=== PATIENT | female | born 1955 | race Hispanic/Latino ===

== ENCOUNTER 2017-06-10 19:18 | Inpatient (IN) | payer OTHER ==
[2017-06-10 20:36] LABS: Basophils % (Auto) 0.2 % (0.0-1.8); Hematocrit 42.2 % (30.3-42.9); Hemoglobin 13.7 gm/dl (10.1-14.3); Mean Corpuscular HGB Conc 33 % (30-34); Mean Corpuscular Hemoglobin 28 pg (28-32); Mean Corpuscular Volume 87 fl (79-97); Platelet Count 149 K/mm3 (140-440); Red Blood Count 4.85 M/mm3 (3.65-5.03); Red Cell Distribution Width 14.5 % (13.2-15.2); White Blood Count 13.4 K/mm3 (4.5-11.0)
[2017-06-10 20:52] LABS: INR 1.13 (0.87-1.13)
[2017-06-10 20:53] LABS: Partial Thromboplastin Time 34.3 Sec. (24.2-36.6)
[2017-06-10] MEDS ORDERED: LEVAQUIN 750MG/150ML 750 MG/150 ML BAG IV ONE (20:54)
[2017-06-10] MEDS ORDERED: NACL 0.9% 1000 ML IV ONE (20:54)
[2017-06-10 20:55] LABS: Anion Gap 22 mmol/L; BUN/Creatinine Ratio 23.75; Blood Urea Nitrogen 19 mg/dL (7-17); Calcium 9.1 mg/dL (8.4-10.2); Carbon Dioxide 22 mmol/L (22-30); Chloride 97.7 mmol/L (98-107); Glucose 145 mg/dL (65-100); Potassium 4.3 mmol/L (3.6-5.0); Sodium 137 mmol/L (137-145)
--- NOTE | 2017-06-10 20:57 | Emergency Department Report ---
ED General Adult HPI - General Chief complaint: Neuro Symptoms/Deficit Stated complaint: POSS STROKE Time Seen by Provider: 06/10/17 20:38 Source: patient, family, EMS (ems notes not available at time of chart dictation), RN notes reviewed Mode of arrival: Stretcher Limitations: Physical Limitation - History of Present Illness Initial comments: This is a 62-year-old female. She is previously unknown to me. She recently moved here from [place]. Has a history of stroke with residual left-sided weakness, hemiparesis, contractures, and is bedbound. History obtained by speaking to the patient and to her daughter; Ms. Kathy Márquez ([phone]). As per the patients family, patient has early dementia. She is brought to the hospital by EMS for right upper extremity weakness and trembling. Uncertain what time the symptoms started. Last known well time was earlier on this afternoon, but daughter is not certain. She describes the patient having trembling in her right upper extremity, and having difficulty bringing a plastic cup up to the mouth. The patient herself denies headache and neck pain, she complains of cough, congestion, nausea and vomiting. Unable to describe exacerbating or relieving factors. Positive subjective fever. No irritative or obstructive urinary symptoms, no abdominal pain at this time. -: Gradual, hour(s) Location: right, upper extremity Severity scale (0 -10): 6 Consistency: now resolved Associated Symptoms: confusion, chest pain, fever/chills, malaise, nausea/ vomiting, weakness - Related Data Home Medications Medication Instructions Recorded Confirmed Last Taken AtorvaSTATin [Lipitor] 80 mg PO QHS 06/10/17 06/10/17 06/10/17 Baclofen 20 mg PO Q8H 06/10/17 06/10/17 06/10/17 Gabapentin [Neurontin] 800 mg PO BID 06/10/17 06/10/17 06/10/17 Pregabalin [Lyrica] 150 mg PO BID 06/10/17 06/10/17 06/10/17 Trazodone HCl [Oleptro ER] 150 mg PO QHS 06/10/17 06/10/17 06/09/17 Allergies Allergy/AdvReac Type Severity Reaction Status Date / Time ampicillin Allergy Swelling Verified 06/10/17 19:51 Penicillins Allergy Swelling Verified 06/10/17 19:51 Sulfa (Sulfonamide Allergy Swelling Verified 06/10/17 19:51 Antibiotics) ED Review of Systems ROS: Stated complaint: POSS STROKE Other details as noted in HPI Comment: Unobtainable due to pts medical conditions Constitutional: fever, malaise Respiratory: denies: cough Gastrointestinal: nausea, vomiting Neurological: weakness, confusion ED Past Medical Hx - Past Medical History Previous Medical History?: Yes Hx CVA: Yes (2014 LEFT SIDED PARALYSIS) Hx Dementia: Yes (ALZHEIMERS) - Surgical History Past Surgical History?: No - Social History Smoking Status: Never Smoker Substance Use Type: Prescribed - Medications Home Medications: Home Medications Medication Instructions Recorded Confirmed Last Taken Type AtorvaSTATin [Lipitor] 80 mg PO QHS 06/10/17 06/10/17 06/10/17 History Baclofen 20 mg PO Q8H 06/10/17 06/10/17 06/10/17 History Gabapentin [Neurontin] 800 mg PO BID 06/10/17 06/10/17 06/10/17 History Pregabalin [Lyrica] 150 mg PO BID 06/10/17 06/10/17 06/10/17 History Trazodone HCl [Oleptro ER] 150 mg PO QHS 06/10/17 06/10/17 06/09/17 History ED Physical Exam - General Limitations: Physical Limitation General appearance: alert, in no apparent distress - Head Head exam: Present: atraumatic, normocephalic - Eye Eye exam: Present: normal appearance, other (the patient is awake, follows some commands, but she does not move her eyes to the right or left.) - ENT ENT exam: Present: mucous membranes dry - Neck Neck exam: Present: normal inspection, full ROM. Absent: tenderness, meningismus - Respiratory Respiratory exam: Present: rhonchi, decreased breath sounds. Absent: respiratory distress - Cardiovascular Cardiovascular Exam: Present: normal rhythm, tachycardia, normal heart sounds. Absent: systolic murmur, diastolic murmur, rubs, gallop - GI/Abdominal GI/Abdominal exam: Present: soft, normal bowel sounds. Absent: distended, tenderness, guarding, rebound, rigid, pulsatile mass - Rectal Rectal exam: Present: normal inspection - Extremities Exam Extremities exam: Present: normal inspection, normal capillary refill. Absent: pedal edema, joint swelling, calf tenderness - Back Exam Back exam: Present: normal inspection, full ROM. Absent: tenderness, CVA tenderness (R), CVA tenderness (L), muscle spasm, paraspinal tenderness, vertebral tenderness - Neurological Exam Neurological exam: Present: alert (patient is alert to name, location, and can name her daughter.), motor sensory deficit (chronic weakness left upper extremity, left lower extremity) - Psychiatric Psychiatric exam: Present: normal affect, normal mood - Skin Skin exam: Present: warm, dry, intact, normal color. Absent: rash ED Course Vital Signs 06/10/17 06/10/17 06/10/17 19:35 19:45 19:51 Temperature 98.5 F Pulse Rate 114 H 115 H Respiratory 23 18 Rate Blood Pressure 124/72 138/72 124/72 Blood Pressure 124/72 [Right] O2 Sat by Pulse 96 96 Oximetry 06/10/17 06/10/17 06/10/17 20:00 20:03 20:04 Temperature Pulse Rate 105 H 115 H Respiratory 20 18 Rate Blood Pressure 149/65 Blood Pressure [Right] O2 Sat by Pulse 96 96 Oximetry 06/10/17 06/10/17 06/10/17 20:15 20:42 20:45 Temperature Pulse Rate 105 H 109 H 116 H Respiratory 16 19 15 Rate Blood Pressure 150/66 124/72 145/76 Blood Pressure [Right] O2 Sat by Pulse 96 97 97 Oximetry 06/10/17 06/10/17 06/10/17 20:54 21:00 21:16 Temperature 102.6 F H Pulse Rate 122 H 112 H Respiratory 15 21 Rate Blood Pressure 145/76 145/76 Blood Pressure [Right] O2 Sat by Pulse 96 97 Oximetry 06/10/17 06/10/17 06/10/17 21:30 22:02 22:16 Temperature Pulse Rate 110 H 122 H 137 H Respiratory 18 18 Rate Blood Pressure 145/76 145/76 145/76 Blood Pressure [Right] O2 Sat by Pulse 98 98 97 Oximetry 06/10/17 06/10/17 06/10/17 22:30 22:45 23:00 Temperature Pulse Rate 128 H 126 H 125 H Respiratory 23 21 18 Rate Blood Pressure 144/63 133/50 133/50 Blood Pressure [Right] O2 Sat by Pulse 98 98 96 Oximetry 06/10/17 06/10/17 06/10/17 23:15 23:30 23:36 Temperature 100.2 F H Pulse Rate 126 H 149 H 152 H Respiratory 23 27 H 18 Rate Blood Pressure 132/55 132/55 Blood Pressure 124/87 [Right] O2 Sat by Pulse 95 97 98 Oximetry 06/10/17 06/10/17 06/11/17 23:46 23:53 00:00 Temperature 100.6 F H Pulse Rate 161 H 156 H Respiratory 30 H 29 H Rate Blood Pressure 154/111 154/111 Blood Pressure [Right] O2 Sat by Pulse 99 96 Oximetry - Reevaluation(s) Reevaluation #1: 06/10/17 21:55 Differential diagnosis: Urinary tract infection, pneumonia, sepsis, transient ischemic attack, dehydration, renal insufficiency Assessment and plan: 62-year-old female with history of dementia, stroke, left- sided hemiparesis, which resolved right upper extremity weakness. She has 5 out of 5 strength in the right upper and right lower extremity, with sensation intact to light touch in the right upper and right lower extremity. The patient is not delirious at this point time, and she meets systemic inflammatory response syndrome criteria through tachycardia, fever, leukocytosis. Noncontrast CT scan of the brain is negative, x-ray of the chest is negative, urinalysis is pending, given reported history of nausea and vomiting, CT scan of the abdomen and pelvis is pending. Family endorses anaphylaxis with penicillins, therefore the patient will be covered empirically with Levaquin. Reevaluation #2: 06/10/17 23:02 CT scan demonstrates obstructing stone. Patient remains hemodynamically stable , a call is placed out to the urologist. Reevaluation #3: 06/11/17 01:08 Case was discussed with urology, Dr. Lezama. He is coming in to perform emergent intervention for obstructing kidney stone, likely causing septic hydronephrosis. Case is presented to the Hospital physician, Dr. Kelly, she accepts the patient to her service. ED Medical Decision Making - Lab Data Result diagrams: 06/10/17 20:17 06/10/17 20:17 Vital Signs 06/10/17 06/10/17 06/10/17 19:35 19:45 19:51 Temperature 98.5 F Pulse Rate 114 H 115 H Respiratory 23 18 Rate Blood Pressure 124/72 138/72 124/72 Blood Pressure 124/72 [Right] O2 Sat by Pulse 96 96 Oximetry 06/10/17 06/10/17 06/10/17 20:00 20:03 20:04 Temperature Pulse Rate 105 H 115 H Respiratory 20 18 Rate Blood Pressure 149/65 Blood Pressure [Right] O2 Sat by Pulse 96 96 Oximetry 06/10/17 06/10/17 20:15 20:54 Temperature 102.6 F H Pulse Rate 105 H Respiratory 16 Rate Blood Pressure 150/66 Blood Pressure [Right] O2 Sat by Pulse 96 Oximetry Lab Results 06/10/17 06/10/17 06/10/17 Range/Units 20:17 20:17 20:17 WBC 13.4 H (4.5-11.0) K/mm3 RBC 4.85 (3.65-5.03) M/mm3 Hgb 13.7 (10.1-14.3) gm/dl Hct 42.2 (30.3-42.9) % MCV 87 (79-97) fl MCH 28 (28-32) pg MCHC 33 (30-34) % RDW 14.5 (13.2-15.2) % Plt Count 149 (140-440) K/mm3 Lymph % (Auto) 4.3 L (13.4-35.0) % [place] % (Auto) 7.8 H (0.0-7.3) % Eos % (Auto) 0.0 (0.0-4.3) % Baso % (Auto) 0.2 (0.0-1.8) % Lymph # 0.6 L (1.2-5.4) K/mm3 [place] # 1.0 H (0.0-0.8) K/mm3 Eos # 0.0 (0.0-0.4) K/mm3 Baso # 0.0 (0.0-0.1) K/mm3 Seg Neutrophils % 87.7 H (40.0-70.0) % Seg Neutrophils # 11.8 H (1.8-7.7) K/mm3 PT 14.4 (12.2-14.9) Sec. INR 1.13 (0.87-1.13) APTT 34.3 (24.2-36.6) Sec. Thrombin Time (15.1-19.6) Sec. Sodium 137 (137-145) mmol/L Potassium 4.3 (3.6-5.0) mmol/L Chloride 97.7 L (98-107) mmol/L Carbon Dioxide 22 (22-30) mmol/L Anion Gap 22 mmol/L BUN 19 H (7-17) mg/dL Creatinine 0.8 (0.7-1.2) mg/dL Estimated GFR > 60 ml/min BUN/Creatinine Ratio 23.75 % Glucose 145 H (65-100) mg/dL POC Glucose (70-105) Calcium 9.1 (8.4-10.2) mg/dL Magnesium (1.7-2.3) mg/dL Total Creatine Kinase (30-135) units/L Troponin T < 0.010 (0.00-0.029) ng/mL 06/10/17 06/10/17 06/10/17 Range/Units 20:17 20:19 21:05 WBC (4.5-11.0) K/mm3 RBC (3.65-5.03) M/mm3 Hgb (10.1-14.3) gm/dl Hct (30.3-42.9) % MCV (79-97) fl MCH (28-32) pg MCHC (30-34) % RDW (13.2-15.2) % Plt Count (140-440) K/mm3 Lymph % (Auto) (13.4-35.0) % [place] % (Auto) (0.0-7.3) % Eos % (Auto) (0.0-4.3) % Baso % (Auto) (0.0-1.8) % Lymph # (1.2-5.4) K/mm3 [place] # (0.0-0.8) K/mm3 Eos # (0.0-0.4) K/mm3 Baso # (0.0-0.1) K/mm3 Seg Neutrophils % (40.0-70.0) % Seg Neutrophils # (1.8-7.7) K/mm3 PT (12.2-14.9) Sec. INR (0.87-1.13) APTT (24.2-36.6) Sec. Thrombin Time 15.4 (15.1-19.6) Sec. Sodium (137-145) mmol/L Potassium (3.6-5.0) mmol/L Chloride (98-107) mmol/L Carbon Dioxide (22-30) mmol/L Anion Gap mmol/L BUN (7-17) mg/dL Creatinine (0.7-1.2) mg/dL Estimated GFR ml/min BUN/Creatinine Ratio % Glucose (65-100) mg/dL POC Glucose 151 H (70-105) Calcium (8.4-10.2) mg/dL Magnesium 1.90 (1.7-2.3) mg/dL Total Creatine Kinase 31 (30-135) units/L Troponin T (0.00-0.029) ng/mL - EKG Data -: EKG Interpreted by Me - EKG Data 06/10/17 21:57 Sinus tachycardia, 112 bpm, borderline left axis deviation, atrial enlargement, motion artifact, not morphologically consistent with ST elevation myocardial infarction, abnormal EKG, not consistent with STEMI - Radiology Data Radiology results: report reviewed, image reviewed interpreted by me: X-ray of the chest is negative. Noncontrast CT scan of the brain is negative. Chronic findings are noted. CT scan of the abdomen and pelvis is pending. CT scan of the abdomen and pelvis demonstrates obstructing left-sided kidney stone Critical care attestation.: If time is entered above; I have spent that time in minutes in the direct care of this critically ill patient, excluding procedure time. ED Disposition Clinical Impression: SIRS (systemic inflammatory response syndrome) Disposition: OP ADMIT IP TO THIS HOSP Is pt being admited?: Yes Condition: Fair
[2017-06-10] MEDS ORDERED: NACL ONE (21:35)
[2017-06-10 21:43] LABS: Magnesium 1.9 mg/dL (1.7-2.3)
--- NOTE | 2017-06-10 21:45 | Cat Scan Report ---
FINAL REPORT PROCEDURE: CT head without contrast. TECHNIQUE: Computerized tomography of the head was performed without contrast material. HISTORY: neuro deficits \T\lt; 6hrs or sx present upon awakening COMPARISON: No prior studies are available for comparison. FINDINGS: There is some motion artifact on a few of the images. There is mild cerebral atrophy. There is an old lacunar infarct in the left basal ganglia. There is encephalomalacia involving the posterior portion of the right frontal lobe and the anterior portion of the right temporal lobe. This is consistent with an old stroke. There are no definite signs of acute infarction. An MRI scan with diffusion-weighted imaging is the most sensitive means of detecting an early stroke. There are no mass lesions. There is no intracranial hemorrhage. The calvarium appears intact. The mastoid air cells and paranasal sinuses are clear. IMPRESSION: Mild cerebral atrophy and chronic ischemic changes as described. No definite signs of acute disease.
[2017-06-10] MEDS ORDERED: TYLENOL PR ONE (21:58)
--- NOTE | 2017-06-10 22:36 | Cat Scan Report ---
FINAL REPORT PROCEDURE: CT abdomen and pelvis with contrast. TECHNIQUE: Computerized axial tomography of the abdomen and pelvis was performed after the IV injection of iodinated nonionic contrast. HISTORY: Fever, sepsis. COMPARISON: No prior studies are available for comparison. FINDINGS: There is some subsegmental atelectasis in the left lower lobe. There are no pleural effusions. The heart size is normal. The liver, spleen and pancreas appear normal. The gallbladder is present. The adrenal glands are not enlarged. Both kidneys appear normal in size and configuration. There is a nonobstructing calculus in the lower pole of the left kidney. This measures 6.0 millimeters in diameter. There is moderate left hydronephrosis and hydroureter. There is mildly delayed enhancement of the renal parenchyma and definitely delayed excretion into the renal collecting system. There is an obstructing calculus in the distal left ureter. This measures 9.1 millimeters x 5.1 millimeters in cross-section. This is close to the ureteral vesicle junction. This calculus could be too large to pass and referral to a urologist may be needed. The abdominal aorta has a normal caliber. There is dense atherosclerotic calcification in the abdominal aorta. There is no retroperitoneal adenopathy. A normal appendix is visible. The bladder, uterus and adnexal regions are unremarkable. There is osteoarthritis involving both hip joints. There is osteoarthritis involving the facet joints in the lower lumbar spine. IMPRESSION: Obstructing calculus in the distal left ureter measuring 9.1 millimeters x 5.1 millimeters. Additional nonobstructing left renal calculus. Osteoarthritis involving both hip joints and the lower lumbar spine.
[2017-06-10 22:38] LABS: Albumin 3.8 g/dL (3.9-5); Albumin/Globulin Ratio 1.2 %; Bilirubin,Direct 0.3 mg/dL (0-0.2); Bilirubin,Indirect 0.8 mg/dL; Bilirubin,Total 1.1 mg/dL (0.1-1.2); Total Protein 7.1 g/dL (6.3-8.2)
--- NOTE | 2017-06-10 23:27 | History and Physical Report ---
History of Present Illness Date of examination: 06/11/17 History of present illness: 62-year-old woman with a history of dementia, previous CVA times emergency room because pain of positive vomiting 1 day. Per EMS sheet, the daughter sent her to the emergency room because she thought she was having a stroke because of right-sided weakness. Patient was noted to have a fever and was found to have a obstructing stone and kidney review of systems very difficult to obtain PAST MEDICAL HISTORY:dementia, previous CVA PAST SURGICAL HISTORY: Unknown FAILY HISTORY: Unknown SOCIAL HISTORY: Unknown Medications and Allergies Allergies Allergy/AdvReac Type Severity Reaction Status Date / Time ampicillin Allergy Swelling Verified 06/10/17 19:51 Penicillins Allergy Swelling Verified 06/10/17 19:51 Sulfa (Sulfonamide Allergy Swelling Verified 06/10/17 19:51 Antibiotics) Home Medications Medication Instructions Recorded Confirmed Last Taken Type AtorvaSTATin [Lipitor] 80 mg PO QHS 06/10/17 06/10/17 06/10/17 History Baclofen 20 mg PO Q8H 06/10/17 06/10/17 06/10/17 History Gabapentin [Neurontin] 800 mg PO BID 06/10/17 06/10/17 06/10/17 History Pregabalin [Lyrica] 150 mg PO BID 06/10/17 06/10/17 06/10/17 History Trazodone HCl [Oleptro ER] 150 mg PO QHS 06/10/17 06/10/17 06/09/17 History Exam - Physical Exam Narrative exam: Gen. appearance: Patient lying in bed in no acute distress HEENT: Normocephalic/atraumatic, pupils equal round reactive to light, extra alkaline movement intact, no scleral icterus, no JVD or thyromegaly or nodule, neck is supple, mucous membrane moist, no erythema or exudate Heart: S1-S2, regular rate and rhythm Lungs: Clear to auscultation bilateral breathing comfortable Abdomen: Positive bowel sounds, nontender, nondistended, no organomegaly Extremities: No edema, cyanosis, clubbing Neuro:: Difficult to assess Skin: No rash, nodules, warm dry - Constitutional Vitals: Temp Pulse Resp BP Pulse Ox 102.6 F H 105 H 16 150/66 96 06/10/17 20:54 06/10/17 20:15 06/10/17 20:15 06/10/17 20:15 06/10/17 20:15 Results - Labs CBC & Chem 7: 06/12/17 05:36 06/12/17 05:36 Labs: Abnormal lab results 06/10/17 06/10/17 06/10/17 Range/Units 20:17 20:17 20:17 WBC 13.4 H (4.5-11.0) K/mm3 Lymph % (Auto) 4.3 L (13.4-35.0) % [place] % (Auto) 7.8 H (0.0-7.3) % Lymph # 0.6 L (1.2-5.4) K/mm3 [place] # 1.0 H (0.0-0.8) K/mm3 Seg Neutrophils % 87.7 H (40.0-70.0) % Seg Neutrophils # 11.8 H (1.8-7.7) K/mm3 Chloride 97.7 L (98-107) mmol/L BUN 19 H (7-17) mg/dL Glucose 145 H (65-100) mg/dL POC Glucose (70-105) Lactic Acid (0.7-2.0) mmol/L Direct Bilirubin 0.3 H (0-0.2) mg/dL Alkaline Phosphatase 143 H (35-129) units/L Albumin 3.8 L (3.9-5) g/dL 06/10/17 06/10/17 Range/Units 20:19 21:05 WBC (4.5-11.0) K/mm3 Lymph % (Auto) (13.4-35.0) % [place] % (Auto) (0.0-7.3) % Lymph # (1.2-5.4) K/mm3 [place] # (0.0-0.8) K/mm3 Seg Neutrophils % (40.0-70.0) % Seg Neutrophils # (1.8-7.7) K/mm3 Chloride (98-107) mmol/L BUN (7-17) mg/dL Glucose (65-100) mg/dL POC Glucose 151 H (70-105) Lactic Acid 2.50 H* (0.7-2.0) mmol/L Direct Bilirubin (0-0.2) mg/dL Alkaline Phosphatase (35-129) units/L Albumin (3.9-5) g/dL - Imaging and Cardiology CT scan - abdomen: report reviewed CT Scan - head: report reviewed CT scan - pelvis: report reviewed Assessment and Plan Assessment Sepsis UTI Obstructing kidney stone Alzheimer's History of CVA Plan Admit medicine Soda IV antibiotic, follow cultures Patient will be taken to the OR by urology Reassess legs for weakness, will hold off on MRI for now Start dvt prophalaxis
[2017-06-10 23:32] LABS: Bilirubin,Urine NEG (Negative)
[2017-06-10 23:33] LABS: Bacteria,Urine 1+ /HPF (Negative); Blood,Urine MOD (Negative); Ketones,Urine NEG (Negative); Leukocyte Esterase,Urine MOD (Negative); Mucus,Urine FEW /HPF; Nitrite,Urine NEG (Negative); Protein,Urine <15 mg/dL mg/dL (Negative)
[2017-06-11] MEDS ORDERED: ZOFRAN IV PRN (00:18)
[2017-06-11] MEDS ORDERED: DULCOLAX PR PRN (00:18)
--- NOTE | 2017-06-11 00:19 | Consultation ---
History of Present Illness - Reason for Consult Consult date: 06/11/17 - History of Present Illness CC: distal ureteral stone This is a 62-year-old female. She is previously unknown to me. She recently moved here from [place]. Has a history of stroke with residual left-sided weakness, hemiparesis, contractures, and is bedbound. Hx per chart review due to CVA. Daughter; Ms. Kathy Márquez ([phone]). As per the patients family, patient has early dementia. She is brought to the hospital by EMS for right upper extremity weakness and trembling. Uncertain what time the symptoms started. Last known well time was earlier on this afternoon, but daughter is not certain. She describes the patient having trembling in her right upper extremity, and having difficulty bringing a plastic cup up to the mouth. The patient herself denies headache and neck pain, she complains of cough, congestion, nausea and vomiting. Unable to describe exacerbating or relieving factors. Positive subjective fever. No irritative or obstructive urinary symptoms, no abdominal pain at this time. CTAP (06-10-17) 9mm left distal stone A/p 9mm distal ureteral stone leukocytosis needs cysto, stent (home with abx when stable) elective stone extraction (ureteroscopy) Medications and Allergies Allergies Allergy/AdvReac Type Severity Reaction Status Date / Time ampicillin Allergy Swelling Verified 06/10/17 19:51 Penicillins Allergy Swelling Verified 06/10/17 19:51 Sulfa (Sulfonamide Allergy Swelling Verified 06/10/17 19:51 Antibiotics) Home Medications Medication Instructions Recorded Confirmed Last Taken Type AtorvaSTATin [Lipitor] 80 mg PO QHS 06/10/17 06/10/17 06/10/17 History Baclofen 20 mg PO Q8H 06/10/17 06/10/17 06/10/17 History Gabapentin [Neurontin] 800 mg PO BID 06/10/17 06/10/17 06/10/17 History Pregabalin [Lyrica] 150 mg PO BID 06/10/17 06/10/17 06/10/17 History Trazodone HCl [Oleptro ER] 150 mg PO QHS 06/10/17 06/10/17 06/09/17 History Active Meds: Active Medications Enoxaparin Sodium (Lovenox) 40 mg SUB-Q QDAY EMILE Exam - Constitutional Vitals: Temp Pulse Resp BP Pulse Ox 100.6 F H 156 H 29 H 154/111 96 06/10/17 23:53 06/11/17 00:00 06/11/17 00:00 06/11/17 00:00 06/11/17 00:00 Results - Labs CBC & Chem 7: 06/10/17 20:17 06/10/17 20:17
[2017-06-11] MEDS ORDERED: DILAUDID ONE (00:20)
[2017-06-11] MEDS ORDERED: XYLOCAINE MPF 2% ONE (00:21)
[2017-06-11] MEDS ORDERED: DILAUDID IV PRN (00:26)
[2017-06-11] MEDS ORDERED: AMIDATE IV ONE (00:33)
[2017-06-11] MEDS ORDERED: NACL 0.9% 1000 ML 1,000 ML ONE ×2 (00:40→01:46)
[2017-06-11] MEDS ORDERED: OMNIPAQUE 300 MG/50 ML (CATH LAB) IV ONE (00:42)
[2017-06-11] MEDS ORDERED: WATER FOR IRRIG STERILE IR ONE (00:42)
--- NOTE | 2017-06-11 00:43 | Anesthesia Consultation ---
Anesthesia Consult and Med Hx Date of service: 06/11/17 - Airway Anesthetic Teeth Evaluation: Edentulous ROM Head & Neck: Adequate Mental/Hyoid Distance: Adequate Mallampati Class: Class II Intubation Access Assessment: Good - Pulmonary Exam CTA: Yes - Cardiac Exam Cardiac Exam: RRR - Pre-Operative Health Status ASA Pre-Surgery Classification: ASA4 Proposed Anesthetic Plan: General - Pre-Anesthesia Comment Pre-Anesthesia Comments: Ct scan brain shows chronic changes only, CXR is unremarkable, Ct abdomen shows obstructing ureteral stone. Meets criteria for SIRS (fever, WBC, Tachycardia. Elevated lactic acid ) - Central Nervous System CVA: Yes (R sided hemiparesis) Hx Psychiatric Problems: Yes (dementia) - Additional Comments Anesthesia Medical History Comments: Unsure of NPO status. Will intubate but avoid annectine.
--- NOTE | 2017-06-11 00:45 | Anesthesia Day of Surgery ---
Anesthesia Day of Surgery - Day of Surgery Patient Examined: Yes Patient H&P Reviewed: Yes Patient is NPO: No (unsure) Beta Blockers: No
[2017-06-11] MEDS ORDERED: PEPCID IV ONE (00:50)
[2017-06-11] MEDS ORDERED: PEPCID IV NR (01:00)
[2017-06-11] MEDS ORDERED: LEVAQUIN 500MG/100ML 500 MG/100 ML BAG IV ONE (01:12)
[2017-06-11] MEDS ORDERED: BREVIBLOC IV ONE (01:18)
[2017-06-11] MEDS ORDERED: ZOFRAN ONE ×2 (01:18→01:51)
--- NOTE | 2017-06-11 01:25 | Post Operative Note ---
Pre-op diagnosis: left 9mm distal stone & infection Findings: cysto, left rpg, stent (6x 26F with internal string) Anesthesia: GETA Surgeon: ANTWON MARTIN Estimated blood loss: none Pathology: none Condition: stable Disposition: PACU (home when stable/ elective stone extraction as outpt)
[2017-06-11] MEDS ORDERED: ZEMURON IV ONE (01:28)
--- NOTE | 2017-06-11 01:33 | Event Note ---
Date: 06/11/17 spoke with daughter post op regrading surgery---Kahty Márquez
--- NOTE | 2017-06-11 01:38 | Post Anesthesia Evaluation ---
- Post Anesthesia Evaluation Patient Participated: Yes Airway Patent: Yes Stable Respiratory Function: Yes Temp > 96.8F: Yes Pain Manageable: Yes Adequeate Hydration: Yes Anesthesia Complications: No Block Receding Appropriately: Not Applicable
[2017-06-11] MEDS ORDERED: ROBINUL ONE (01:52)
[2017-06-11] MEDS ORDERED: NEOSTIGMINE ONE (01:52)
--- NOTE | 2017-06-11 02:45 | Operative Report ---
PREOPERATIVE DIAGNOSIS: Left distal stone with infection. POSTOPERATIVE DIAGNOSIS: Left distal stone with infection. PROCEDURE: Cystoscopy, left retrograde pyelogram, left double-J stent placement. SURGEON: Sarthak Lezama MD ANESTHESIA: General. ANESTHESIOLOGIST: Nito Rm MD ESTIMATED BLOOD LOSS: Minimal. FLUIDS: Crystalloid. COMPLICATIONS: No complications. INDICATIONS: This patient is a 62-year-old female who presented to the Emergency Room with weakness and trembling. She has a history of cerebrovascular accident with left-sided weakness and hemiparesis and contractures. She recently relocated with her daughter, Lalitha Márquez, to [place]. The patient also has dementia. CT of abdomen and pelvis revealed distal 9 mm stone. She has leukocytosis and tachycardia. Received a call from Dr. Arndt from the ER regarding her condition and the need for intervention. Consent was taken by her daughter. DESCRIPTION OF PROCEDURE: The patient was taken to the operative suite, placed in a supine position. After adequate general anesthesia, attempts to place her in somewhat of a dorsal lithotomy position was difficult due to contractures; however, I was able to place a rigid cystoscope after prepped and draped. No acute bladder pathology. Due to the awkward positioning, I was unable to shoot a right retrograde pyelogram. Left retrograde, I was able to cannulate with a wire, saw mi pus, gentle retrograde, did not quite see the stone; however, due to the signs of pus in the ureter, a 6 [place] 26 cm double-J stent was placed under fluoroscopic guidance with an internal string. Sampson catheter was replaced. Culture was obtained. She was extubated and taken to recovery room in stable condition. JOB# [id number] [facility]
[2017-06-11] MEDS: NACL 0.45% 1000 ML 1,000 ML IV SCH ×3 (02:59→23:26)
[2017-06-11] MEDS: LIORESAL PO SCH ×3 (06:20→23:22)
[2017-06-11] MEDS: TYLENOL PO PRN ×2 (08:20→23:06)
--- NOTE | 2017-06-11 10:25 | XRay Report ---
AP CHEST: HISTORY: Fever, sepsis AP view of the chest demonstrates a normal mediastinal and cardiac contour with clear lungs and normal bony and soft tissue structures. IMPRESSION: Unremarkable AP chest.
--- NOTE | 2017-06-11 10:26 | Fluoroscopy Report ---
FLUOROSCOPY RETROGRADE UROGRAPHY History: Left ureteral stone. Findings: Fluoroscopy was provided by radiology during retrograde urography by Dr. Lezama. 5 fluoroscopic images were captured. The images demonstrate placement of a left ureteral stent which is in good position on the final image and adequately drains the left renal collecting system. Right pyelogram images were not obtained. Impression: Left ureteral stent placement.
[2017-06-11] MEDS: LYRICA PO SCH ×2 (10:45→23:00)
[2017-06-11] MEDS: NEURONTIN PO SCH ×2 (10:45→23:04)
[2017-06-11] MEDS: LOVENOX SUB-Q SCH (10:45)
[2017-06-11] MEDS: LEVAQUIN 750MG/150ML 750 MG/150 ML BAG IV SCH ×2 (10:46→10:50)
--- NOTE | 2017-06-11 11:19 | Progress Note ---
Assessment and Plan Sepsis likely due to UTI - We'll change Levaquin to nitrofurantoin by mouth as she developed a rash - We'll follow urine culture UTI likely due to obstruction - Status post stent placement Obstructing kidney stone - Dr. Lezama following status post stent placement Alzheimer's disease - Supportive care History of CVA with left sided hameparesis - Patient does complain of right-sided weakness than usual - We'll get MRI of the brain - We'll continue on stroke protocol Petechial rash - Likely from the allergic reaction to Levaquin - Patient has multiple drug allergies Hypertension - Continue to monitor and maintain permissive hypertension until rule out acute stroke Brief history: 62-year-old woman with a history of dementia, previous CVA times emergency room because pain of positive vomiting 1 day. Per EMS sheet, the daughter sent her to the emergency room because she thought she was having a stroke because of right-sided weakness. Patient was noted to have a fever and was found to have a obstructing stone and kidney. She is s/p stent placement by Dr. Lezama today. Subjective Date of service: 06/11/17 Interval history: Patient seen and examined. Medical records and medication list reviewed. Patient developed petechial rash on her left arm Patient denies any chest pain or difficulty breathing. Patient also complains of right sided weakness Discussed plan of care at bedside with patient. Objective - Exam Narrative Exam: GENERAL: well-developed and well-nourished white female lying on bed appeared to be in no discomfort. HEENT: Normocephalic. Atraumatic. No conjunctival congestion or icterus. Patient has moist mucous membranes. NECK: Supple. Trachea midline. CHEST/LUNGS: Clear to auscultated bilaterally, breathing nonlabored. No wheezes crackles or rhonchi. HEART/CARDIOVASCULAR: Regular in rate and rhythm. S1 and S2 positive. ABDOMEN: Abdomen is soft, nontender. Patient has normal bowel sounds. SKIN: Petechial rash on the left arm and left side of the face. Warm and dry. NEURO: Left-sided hemiparesis. Follows command. MUSCULOSKELETAL: No joint effusion or tenderness. EXTRIMITY: No edema, no cyanosis or clubbing. PSYCH: Cooperative. - Constitutional Vitals: Vital Signs - 12hr 06/10/17 06/10/17 06/10/17 23:30 23:36 23:46 Temperature 100.2 F H Pulse Rate 149 H 152 H 161 H Respiratory 27 H 18 30 H Rate Blood Pressure 132/55 154/111 Blood Pressure 124/87 [Right] O2 Sat by Pulse 97 98 99 Oximetry 06/10/17 06/11/17 06/11/17 23:53 00:00 01:32 Temperature 100.6 F H 99.5 F Pulse Rate 156 H 121 H Respiratory 29 H 12 Rate Blood Pressure 154/111 174/80 Blood Pressure [Right] O2 Sat by Pulse 96 97 Oximetry 06/11/17 06/11/17 06/11/17 01:35 01:45 01:50 Temperature Pulse Rate 118 H 118 H 97 H Respiratory 18 18 16 Rate Blood Pressure 146/63 143/68 145/65 Blood Pressure [Right] O2 Sat by Pulse 98 95 95 Oximetry 06/11/17 06/11/17 06/11/17 01:55 02:00 02:15 Temperature 98.1 F 98.6 F Pulse Rate 98 H 100 H 101 H Respiratory 14 14 21 Rate Blood Pressure 144/65 137/64 107/55 Blood Pressure [Right] O2 Sat by Pulse 95 95 96 Oximetry 06/11/17 06/11/17 06/11/17 02:30 03:30 07:00 Temperature 98.6 F 99 F Pulse Rate 101 H 111 H Respiratory 20 18 16 Rate Blood Pressure 107/55 119/59 Blood Pressure [Right] O2 Sat by Pulse 98 98 99 Oximetry 06/11/17 09:20 Temperature Pulse Rate Respiratory Rate Blood Pressure Blood Pressure [Right] O2 Sat by Pulse 97 Oximetry - Labs CBC & Chem 7: 06/12/17 05:36 06/12/17 05:36 Labs: Abnormal lab results 06/11/17 Range/Units 00:01 Lactic Acid 5.00 H* (0.7-2.0) mmol/L - Imaging and cardiology CT scan - abdomen: report reviewed CT Scan - head: report reviewed
[2017-06-11] MEDS ORDERED: BENADRYL PO PRN (14:51)
[2017-06-11] MEDS ORDERED: NON-FORMULARY (Trazodone Hcl [Oleptro Er] 150 MG) PO SCH (22:00)
[2017-06-11] MEDS: MACROBID PO SCH (23:02)
[2017-06-11] MEDS: DESYREL PO SCH (23:12)
[2017-06-12] MEDS: LIORESAL PO SCH ×3 (05:54→22:24)
[2017-06-12 06:03] LABS: Basophils % (Auto) 0.2 % (0.0-1.8); Eosinophils % (Auto) 0.3 % (0.0-4.3); Hematocrit 28.8 % (30.3-42.9); Hemoglobin 9.9 gm/dl (10.1-14.3); Mean Corpuscular HGB Conc 34 % (30-34); Mean Corpuscular Hemoglobin 29 pg (28-32); Mean Corpuscular Volume 85 fl (79-97); Platelet Count 78 K/mm3 (140-440); Red Blood Count 3.38 M/mm3 (3.65-5.03); Red Cell Distribution Width 14.5 % (13.2-15.2); White Blood Count 5.4 K/mm3 (4.5-11.0)
[2017-06-12 06:23] LABS: Anion Gap 15 mmol/L; Blood Urea Nitrogen 9 mg/dL (7-17); Calcium 6.4 mg/dL (8.4-10.2); Carbon Dioxide 19 mmol/L (22-30); Chloride 93.1 mmol/L (98-107); Glucose 78 mg/dL (65-100)
[2017-06-12 06:35] LABS: Sodium 124 mmol/L (137-145)
[2017-06-12] MEDS: MACROBID PO SCH ×2 (09:08→22:21)
[2017-06-12] MEDS: LYRICA PO SCH ×2 (09:08→22:20)
[2017-06-12] MEDS: NEURONTIN PO SCH ×2 (09:08→22:19)
[2017-06-12] MEDS: ROCEPHIN/NS 1 GM/50 ML 1 GM/50 ML BAG IV SCH ×2 (09:08→22:22)
[2017-06-12] MEDS: LOVENOX SUB-Q SCH (09:09)
--- NOTE | 2017-06-12 10:31 | Progress Note ---
Subjective Date of service: 06/12/17 Interval history: Pt has no anesthetic related complaints. Objective - Constitutional Vitals: Vital Signs - 12hr 06/12/17 06/12/17 06/12/17 00:00 04:00 08:36 Temperature 103.2 F H 98.3 F 100.3 F H Pulse Rate 97 H 81 92 H Respiratory 17 17 24 Rate Blood Pressure 114/53 142/67 128/64 O2 Sat by Pulse 93 97 95 Oximetry - Labs CBC & Chem 7: 06/12/17 05:36 06/12/17 05:36 Labs: Abnormal lab results 06/12/17 06/12/17 Range/Units 05:36 05:36 RBC 3.38 L (3.65-5.03) M/mm3 Hgb 9.9 L D (10.1-14.3) gm/dl Hct 28.8 L D (30.3-42.9) % Plt Count 78 L (140-440) K/mm3 Lymph % (Auto) 11.0 L (13.4-35.0) % Saline % (Auto) 9.1 H (0.0-7.3) % Lymph # 0.6 L (1.2-5.4) K/mm3 Seg Neutrophils % 79.4 H (40.0-70.0) % Sodium 124 L D (137-145) mmol/L Potassium 3.0 L D (3.6-5.0) mmol/L Chloride 93.1 L (98-107) mmol/L Carbon Dioxide 19 L (22-30) mmol/L Creatinine 0.6 L (0.7-1.2) mg/dL Calcium 6.4 L D (8.4-10.2) mg/dL
--- NOTE | 2017-06-12 10:41 | Progress Note ---
Subjective Date of service: 06/12/17 Interval history: cysto, left rpg, stent (6x 26F with internal string)---06-11-17 resting well mario --clear urine home when stable on abx can dc mario any am appt 2-3 weeks for elective stone extraction Objective - Constitutional Vitals: Vital Signs - 12hr 06/12/17 06/12/17 06/12/17 00:00 04:00 08:36 Temperature 103.2 F H 98.3 F 100.3 F H Pulse Rate 97 H 81 92 H Respiratory 17 24 Rate Blood Pressure 114/53 142/67 128/64 O2 Sat by Pulse 93 97 95 Oximetry - Labs CBC & Chem 7: 06/12/17 05:36 06/12/17 05:36 Labs: Abnormal lab results 06/12/17 06/12/17 Range/Units 05:36 05:36 RBC 3.38 L (3.65-5.03) M/mm3 Hgb 9.9 L D (10.1-14.3) gm/dl Hct 28.8 L D (30.3-42.9) % Plt Count 78 L (140-440) K/mm3 Lymph % (Auto) 11.0 L (13.4-35.0) % [place] % (Auto) 9.1 H (0.0-7.3) % Lymph # 0.6 L (1.2-5.4) K/mm3 Seg Neutrophils % 79.4 H (40.0-70.0) % Sodium 124 L D (137-145) mmol/L Potassium 3.0 L D (3.6-5.0) mmol/L Chloride 93.1 L (98-107) mmol/L Carbon Dioxide 19 L (22-30) mmol/L Creatinine 0.6 L (0.7-1.2) mg/dL Calcium 6.4 L D (8.4-10.2) mg/dL
[2017-06-12] MEDS: NACL 0.9% 1000 ML 1,000 ML IV SCH (11:24)
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
[2017-06-12] MEDS: DESYREL PO SCH (22:20)
[2017-06-12] MEDS: TYLENOL PO PRN (22:21)
--- NOTE | 2017-06-13 03:31 | Admit Criteria Form ---
Admission Criteria Documentation: SEPSIS and OTHER FEBRILE ILLNESS, W/O FOCAL INFECTION Clinical Indications for Admission to Inpatient Care ( Place 'X' for any and all applicable criteria): Admission to inpatient status for two midnights or more is indicated for ANY ONE of the following (1)(2)(3): [ ] I. Bacteremia [X]II. Suspected or identified specific infection requiring hospitalization (eg, meningitis, endocarditis) [ ]III. Hemodynamic instability [ ]IV. Temperature > 104.9 0F (40.5 0C) (oral) [ ]V. Core (rectal) temperature < 95 0F (35 0C) (eg, thought to be due to infection) [ ]. Altered mental status that is severe or persistent [ ]VII. Failure or unavailability of outpatient antimicrobial treatment [ ]VIII. Hypoxemia [ ]IX. Seizures [ ]X. New coagulopathy (eg, reduced platelet count consistent with disseminated intravascular coagulation) [ ]XI. Inpatient admission required [B] rather than observation care because of 1 or more of the following 1) Tachypnea not responsive to outpatient or observation treatment 2) Metabolic disorder (eg, hypoglycemia, hyperglycemia, metabolic acidosis ) that persists despite outpatient and observation care treatment 3) Evidence of end-organ dysfunction (eg, rising creatinine, myocardial ischemia, rising liver function tests) that is severe or persists despite observation care treatment 4) Temperature > 103.1 0F (39.5 0C) (oral) that is not responsive to observation care treatment 5) Dehydration that is severe or persistent 6) Parenteral antimicrobial regimen that must be implemented on inpatient basis (eg, infusion or monitoring needs beyond capabilities of outpatient parenteral therapy) 7) Strict or protective (eg, laminar flow) isolation 8) Other condition, treatment or monitoring requiring inpatient admission Extended stay beyond goal length of stay may be needed for(1)(3) [ ]a) Persistent Hypotension [ ]b) Positive blood cultures [ ]c) Lack of improvement on antimicrobial treatment (eg, continued fever) [ ]d) Active comorbid illness (eg, heart failure, renal failure) [ ]e) High-risk febrile neutropenia [ ]f) Insufficient oral intake [ ]g) insufficient oral intake The original [employer] content created by [employer] has been revised. The portions of the content which have been revised are identified through the use of italic text or in bold, and [employer] has neither reviewed nor approved the modified material. All other unmodified content is copyright [facility]. Please see references footnoted in the original [facility] edition 2017 Admission Criteria Met: Yes
[2017-06-13] MEDS: NACL 0.9% 1000 ML 1,000 ML IV SCH ×2 (03:42→17:11)
[2017-06-13] MEDS: LIORESAL PO SCH ×3 (05:29→22:28)
[2017-06-13 07:36] LABS: Anion Gap 15 mmol/L; Blood Urea Nitrogen 6 mg/dL (7-17); Calcium 7.7 mg/dL (8.4-10.2); Carbon Dioxide 23 mmol/L (22-30); Chloride 109.1 mmol/L (98-107); Glucose 91 mg/dL (65-100); Sodium 144 mmol/L (137-145)
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
[2017-06-13 11:06] LABS: Hematocrit 31.8 % (30.3-42.9); Hemoglobin 10.9 gm/dl (10.1-14.3)
[2017-06-13] MEDS ORDERED: ROCEPHIN/NS 1 GM/50 ML 1 GM/50 ML BAG IV SCH (12:00)
[2017-06-13] MEDS: LOVENOX SUB-Q SCH (12:11)
[2017-06-13] MEDS: LYRICA PO SCH ×2 (12:13→22:28)
[2017-06-13] MEDS: NEURONTIN PO SCH ×2 (12:14→22:28)
[2017-06-13] MEDS: K-DUR PO SCH (12:14)
[2017-06-13] MEDS: ROCEPHIN/NS 1 GM/50 ML 1 GM/50 ML BAG IV SCH (12:19)
[2017-06-13] MEDS: MACROBID PO SCH (12:20)
[2017-06-13] MEDS ORDERED: NACL ONE (12:39)
[2017-06-13] MEDS: KCL 10MEQ/100ML 10 MEQ/100 ML BAG IV SCH ×3 (13:19→15:59)
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
[2017-06-13] MEDS: MILK OF MAGNESIA PO PRN (13:35)
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
[2017-06-13] MEDS: DESYREL PO SCH (22:28)
[2017-06-14] MEDS: LIORESAL PO SCH ×3 (06:37→22:31)
[2017-06-14 06:46] LABS: Anion Gap 14 mmol/L; BUN/Creatinine Ratio 13.33; Blood Urea Nitrogen 4 mg/dL (7-17); Calcium 7.6 mg/dL (8.4-10.2); Carbon Dioxide 26 mmol/L (22-30); Chloride 103.5 mmol/L (98-107); Glucose 92 mg/dL (65-100); Sodium 140 mmol/L (137-145)
[2017-06-14] MEDS ORDERED: K-DUR PO ONE (08:00)
[2017-06-14] MEDS: LOVENOX SUB-Q SCH (09:01)
[2017-06-14] MEDS: LYRICA PO SCH ×2 (09:01→22:08)
[2017-06-14] MEDS: NEURONTIN PO SCH ×2 (09:02→22:09)
[2017-06-14] MEDS: COREG PO SCH ×2 (09:03→22:22)
[2017-06-14] MEDS: NACL 0.9% 1000 ML 1,000 ML IV SCH (09:06)
[2017-06-14] MEDS: K-DUR PO SCH (09:52)
[2017-06-14] MEDS: MILK OF MAGNESIA PO PRN (10:50)
[2017-06-14] MEDS: ROCEPHIN/NS 2 GM/100 ML 2 GM/100 ML BAG IV SCH (12:33)
--- NOTE | 2017-06-14 13:46 | Consultation ---
History of Present Illness - Reason for Consult Consult date: 06/14/17 Requesting physician: SURYA WHIPPLE - History of Present Illness 62-year-old woman with a history of dementia, previous CVA times, admitted on due to 3-day history of severe left flank pain associated with nausea and 24 h of multiple vomiting. Denies melena, hematemesis. She also reports fever and chills. Denies urinary symptoms. In the ED, temp 102.6, HR 122, WBC 13.4K, CR 0.8, lactate 2.5. UA c/w UTI. Blood cx + proteus. Ct showed left obstructive stone. She is s/p stent placement by Dr. Lezama 06/11/17. Microbiology: Blood cultures: 06/10 Proteus intermediate to cipro Urine cultures: 06/11 Proteus Respiratory cultures: Wound cultures: Stool cultures: Other: Current Antimicrobials: ceftriaxone Previous Antimicrobials: Past History Past Medical History: stroke (dementia ), other Past Surgical History: No surgical history Social history: no significant social history Family history: no significant family history Medications and Allergies Allergies Allergy/AdvReac Type Severity Reaction Status Date / Time ampicillin Allergy Swelling Verified 06/10/17 19:51 levofloxacin [From Levaquin] Allergy Rash Verified 06/13/17 11:43 Penicillins Allergy Swelling Verified 06/10/17 19:51 Sulfa (Sulfonamide Allergy Swelling Verified 06/10/17 19:51 Antibiotics) Home Medications Medication Instructions Recorded Confirmed Last Taken Type AtorvaSTATin [Lipitor] 80 mg PO QHS 06/10/17 06/10/17 06/10/17 History Baclofen 20 mg PO Q8H 06/10/17 06/10/17 06/10/17 History Gabapentin [Neurontin] 800 mg PO BID 06/10/17 06/10/17 06/10/17 History Pregabalin [Lyrica] 150 mg PO BID 06/10/17 06/10/17 06/10/17 History Trazodone HCl [Oleptro ER] 150 mg PO QHS 06/10/17 06/10/17 06/09/17 History Active Meds: Active Medications Acetaminophen (Tylenol) 650 mg PO Q4H PRN PRN Reason: Pain MILD(1-3)/Fever >100.5/PEREZ Last Admin: 06/12/17 22:21 Dose: 650 mg Atorvastatin Calcium (Lipitor) 80 mg PO QHS [facility] Last Admin: 06/13/17 22:28 Dose: 80 mg Baclofen (Lioresal) 20 mg PO Q8H [facility] Last Admin: 06/14/17 06:37 Dose: 20 mg Bisacodyl (Dulcolax) [address] QDAY PRN PRN Reason: Constipation unrelieved by MOM Carvedilol (Coreg) 3.125 mg PO BID [facility] Last Admin: 06/14/17 09:03 Dose: 3.125 mg Diphenhydramine HCl (Benadryl) 25 mg PO Q6H PRN PRN Reason: Itching Enoxaparin Sodium (Lovenox) 40 mg SUB-Q QDAY [facility] Last Admin: 06/14/17 09:01 Dose: 40 mg Gabapentin (Neurontin) 800 mg PO BID [facility] Last Admin: 06/14/17 09:02 Dose: 800 mg Sodium Chloride (Nacl 0.9% 1000 Ml) 1,000 mls @ 100 mls/hr IV DIRECT [facility] Last Admin: 06/14/17 09:06 Dose: 100 mls/hr Ceftriaxone Sodium (Rocephin/Ns 2 Gm/100 Ml) 2 gm in 100 mls @ 200 mls/hr IV Q24HR [facility] Last Admin: 06/14/17 12:33 Dose: 200 mls/hr Magnesium Hydroxide (Milk Of Magnesia) 30 ml PO Q4H PRN PRN Reason: Constipation Last Admin: 06/14/17 10:50 Dose: 30 ml Ondansetron HCl (Zofran) 4 mg IV Q8H PRN PRN Reason: N/V unrelieved by Reglan Last Admin: 06/11/17 08:20 Dose: 4 mg Potassium Chloride (K-Dur) 20 meq PO QDAY [facility] Last Admin: 06/14/17 09:52 Dose: 20 meq Pregabalin (Lyrica) 150 mg PO BID [facility] Last Admin: 06/14/17 09:01 Dose: 150 mg Trazodone HCl (Desyrel) 150 mg PO QHS [facility] Last Admin: 06/13/17 22:28 Dose: 150 mg Review of Systems Constitutional: fever, chills, weakness, malaise Ears, nose, mouth and throat: no ear pain, no ear discharge, no tinnitis, no nasal discharge, no sinus pressure Cardiovascular: no chest pain, no orthopnea, no palpitations, no syncope, no shortness of breath Respiratory: no cough Gastrointestinal: abdominal pain, nausea Genitourinary Female: no dyspareunia, no dysuria Physical Examination - Physical Exam Narrative exam: General appearance: Alert in NAD, conversant Eyes: anicteric sclerae, moist conjunctivae; no lid-lag; PERRLA HENT: Atraumatic; oropharynx clear with moist mucous membranes and no mucosal ulcerations/no oral thrush; normal hard and soft palate. Normal external ears. Neck: Trachea midline; supple, no thyromegaly or lymphadenopathy Lungs: CTA, with normal respiratory effort and no intercostal retractions CV: RRR, no murmurs Abdomen: Soft, non-tender; no masses or hepatosplenomegaly Extremities: No peripheral edema or extremity lymphadenopathy Skin: Normal temperature, turgor and texture; no rash, ulcers or subcutaneous nodules Psych: Appropriate affect, alert and oriented to person, place and time. Neuro: alert and oriented x 3. Moving all extermities Lines: No CVL / PICC - Constitutional Vitals: Vital Signs Temp Pulse Resp BP Pulse Ox 100.2 F H 81 20 153/70 97 06/14/17 09:37 06/14/17 09:37 06/14/17 09:37 06/14/17 09:37 06/14/17 09:37 Temperature -Last 24 Hours Temperature 100.2 F Temperature 101.7 F Temperature 100.0 F Results - Labs CBC & Chem 7: 06/13/17 10:42 06/14/17 05:20 Labs: Abnormal lab results 06/14/17 Range/Units 05:20 Potassium 3.0 L (3.6-5.0) mmol/L BUN 4 L (7-17) mg/dL Creatinine 0.3 L (0.7-1.2) mg/dL Calcium 7.6 L (8.4-10.2) mg/dL - Imaging and Cardiology CT scan - abdomen: report reviewed Assessment and Plan Assessment: 1) Sepsis: Present on admission, manifested by fever, leukocytosis. Etiology most likely UTI. 2) Complicated UTI: with an obsctructive stone s/p stent placement. UC + Proteus 3) Proteus septicemia: from UTI Plan: -repeat blood cultures -obtain C-reactive protein (CRP) -conintue ceftriaxone -monitor fever -if not better will consider ceftriaxone 1 g IV q day for 14 days to go home in view of quinolone resistances Thank you Dr Whipple for your consultation, will follow up with you. Laltiha Chapman MD Infectious Diseases Specialist [facility] M [phone] O [phone]
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
[2017-06-14] MEDS: TYLENOL PO PRN (17:26)
[2017-06-14] MEDS ORDERED: PERCOCET 5/325 PO PRN (19:04)
[2017-06-14] MEDS: DESYREL PO SCH (22:21)
[2017-06-15] MEDS: NACL 0.9% 1000 ML 1,000 ML IV SCH ×2 (01:40→11:57)
[2017-06-15 04:57] LABS: Anion Gap 15 mmol/L; BUN/Creatinine Ratio 23.33; Blood Urea Nitrogen 7 mg/dL (7-17); Carbon Dioxide 27 mmol/L (22-30); Chloride 104.1 mmol/L (98-107); Glucose 90 mg/dL (65-100); Potassium 3.4 mmol/L (3.6-5.0); Sodium 143 mmol/L (137-145)
[2017-06-15] MEDS: LIORESAL PO SCH ×2 (05:56→16:30)
[2017-06-15] MEDS: NEURONTIN PO SCH (09:14)
[2017-06-15] MEDS: LYRICA PO SCH (09:14)
[2017-06-15] MEDS: COREG PO SCH (09:15)
[2017-06-15] MEDS: K-DUR PO SCH (09:15)
[2017-06-15] MEDS: LOVENOX SUB-Q SCH (09:15)
--- NOTE | 2017-06-15 09:23 | Event Note ---
Date: 06/15/17 GI consult for bacteremia was placed by mistake. Confirmed with Dr. Koroma. Please re-consult if needed, thanks.
[2017-06-15 09:49] VITALS: BP 163/73
--- NOTE | 2017-06-15 11:30 | Progress Note ---
Assessment and Plan Assessment: 1) Sepsis: Present on admission, manifested by fever, leukocytosis. Etiology most likely UTI. CRP 9.6 2) Complicated UTI: with an obstructive stone s/p stent placement. UC + Proteus 3) Proteus septicemia: from UTI Plan: -f/u repeat blood cultures which are so far negative -conintue ceftriaxone -upon discharge will do ceftin 500 mg PO q12h for 14 days - may need to be extended or restarted 1 week before stent removal -f/u with -monitor fever Thank you Dr Koroma for your consultation, will follow up with you. Lalitha Chapman MD Infectious Diseases Specialist [facility] ([facility]) M [phone] O [phone] Subjective Date of service: 06/15/17 Interval history: feels better, still low grade fever-100. Microbiology: Blood cultures: 06/10 Proteus intermediate to cipro 06/12 ngtd Urine cultures: 06/11 Proteus Respiratory cultures: Wound cultures: Stool cultures: Other: Current Antimicrobials: 06/14 ceftriaxone Previous Antimicrobials: Objective - Constitutional Vitals: Vital Signs Temp Pulse Resp BP Pulse Ox 98.7 F 92 H 18 163/73 95 06/15/17 07:00 06/15/17 07:00 06/15/17 07:00 06/15/17 07:00 06/15/17 07:00 Temperature -Last 24 Hours Temperature 98.7 F Temperature 100 F Temperature 98.1 F - Labs CBC & Chem 7: 06/13/17 10:42 06/15/17 04:03 Labs: Abnormal lab results 06/14/17 06/15/17 Range/Units 05:20 04:03 Potassium 3.4 L (3.6-5.0) mmol/L Creatinine 0.3 L (0.7-1.2) mg/dL Calcium 8.0 L (8.4-10.2) mg/dL C-Reactive Protein 9.60 H (0.00-1.30) mg/dL
--- NOTE | 2017-06-15 11:46 | Discharge Summary ---
Providers - Providers Date of Admission: 06/10/17 23:27 Date of discharge: 06/15/17 Attending physician: MATTHEW MONSIVAIS MD 06/12/17 08:29 Physical Therapy Evaluation and Treat [CONS] Routine Comment: Reason For Exam: placement 06/13/17 15:01 Consult to Physician [CONS] Routine Consulting Provider: YURIDIA REESE Reason For Exam: bacteremia Place consult to:: truer pinion and wheel ID/ Notified:: DR. REESE Phone number called:: [phone] Was contact made?: Yes If yes, spoke with:: THOMAS Noonan called:: 16:13 Comment:: HEYDI NOTIFIED 06/13/17 23:46 Consult to Physician [CONS] Routine Consulting Provider: BRANDEN DENNIS Reason For Exam: bacteremia Place consult to:: MINO/DR. BARBER Notified:: DR. BARBER Phone number called:: IN HOUSE Was contact made?: Yes If yes, spoke with:: DR. BARBER Time called:: 10:03 Primary care physician: HUMAN SERVICE SPECIALIST Hospitalization Reason for admission: Sepsis, obstructing left ureteric calculus Condition: Fair Pertinent studies: CT abdomen and pelvis significant for left obstructing ureteral calculus and non -obstructing left renal calculus CT head negative twice CT pyelogram significant for status post left ureteral stent placement Procedures: Left ureteral stent placement Hospital course: Admission H&P 62-year-old woman with a history of dementia, previous CVA times emergency room because pain of positive vomiting 1 day. Per EMS sheet, the daughter sent her to the emergency room because she thought she was having a stroke because of right-sided weakness. Patient was noted to have a fever and was found to have a obstructing stone and kidney review of systems very difficult to obtain. Patient was admitted to the floor and was started treatment with IV antibiotics, Dr. Lezama was consulted, and he put left ureteral stent. The culture grew Proteus mirabilis and patient was treated with appropriate IV antibiotics, and ID recommendation appreciated. Patient became fever free and discharged with by mouth antibiotics to be taken for a total of 2 weeks. Patient had history of stroke and on current admission CT head was negative, we couldn't do MRI because the patient has put it in her neck. We continued her outpatient treatment. Disposition: - TO HOME OR SELFCARE Time spent for discharge: 31 minutes - Discharge Diagnoses (1) Sepsis Status: Acute Qualifiers: Sepsis type: S (2) Sepsis due to Gram negative bacteria Status: Acute (3) SIRS (systemic inflammatory response syndrome) Status: Acute (4) History of stroke Status: Acute Core Measure Documentation - Palliative Care Palliative Care/ Comfort Measures: Not Applicable - Core Measures Any of the following diagnoses?: history only (Right sided stroke with left sided weakness) Exam - Physical Exam Narrative exam: Not in cardiopulmonary distress. The patient appeared well nourished and normally developed. Vital signs as documented. Head exam is unremarkable. No scleral icterus . Neck is without jugular venous distension, thyromegaly, or carotid bruits. Lungs are clear to auscultation. Cardiac exam reveals regular rate and Rhythm. Abdominal exam reveals normal bowel sounds, no masses, no organomegaly. Extremities are contracted left extremities. CENTRAL STERILE TECH: left sided weakness. - Constitutional Vitals: Temp Pulse Resp BP Pulse Ox 98.7 F 92 H 18 163/73 95 06/15/17 07:00 06/15/17 07:00 06/15/17 07:00 06/15/17 07:00 06/15/17 07:00 Plan Activity: advance as tolerated Weight Bearing Status: Non-Weight Bearing Diet: low salt Follow up with: PRIMARY CARE, [Primary Care Provider] - 3-5 Days Prescriptions: Aspirin [Aspirin BABY CHEW TAB] 81 mg PO QDAY #30 tab.chew Bisacodyl [Dulcolax suppos] 10 mg [place] QDAY PRN #30 supp.rect PRN Reason: Constipation unrelieved by MOM Carvedilol [Coreg] 3.125 mg PO BID #60 tablet Cefuroxime [Ceftin] 500 mg PO Q12H #56 tablet
[2017-06-15] MEDS: ROCEPHIN/NS 2 GM/100 ML 2 GM/100 ML BAG IV SCH (11:57)
== END 2017-06-15 17:25 | disposition home or self-care (01) | DRG 872 ==
LOC: ED 19:18 → 3A 23:27
PROVIDERS: ADMIT Internal Medicine; ATTEND Internal Medicine
PROC: 0T778DZ Dilation of Left Ureter with Intraluminal Device, Via Natural or Artificial Opening Endoscopic (ICD-10-PCS; principal; 2017-06-10)
PROC: BT1F1ZZ Fluoroscopy of Left Kidney, Ureter and Bladder using Low Osmolar Contrast (ICD-10-PCS; 2017-06-10)
DX: A41.4 Sepsis due to anaerobes (principal); N39.0 Urinary tract infection, site not specified; I69.351 Hemiplegia and hemiparesis following cerebral infarction affecting right dominant side; N20.2 Calculus of kidney with calculus of ureter; Z88.3 Allergy status to other anti-infective agents; Z88.0 Allergy status to penicillin; Z88.2 Allergy status to sulfonamides; G30.9 Alzheimer's disease, unspecified; F02.80 Dementia in other diseases classified elsewhere, unspecified severity, without behavioral disturbance, psychotic disturbance, mood disturbance, and anxiety; R23.3 Spontaneous ecchymoses; I10 Essential (primary) hypertension; E87.6 Hypokalemia
CPT/HCPCS: 36415; 70450; 70460; 71010; 72020; 74177; 74420; 80048; 80074; 81001; 82140; 82550; 82962; 83690; 83735; 84484; 85014; 85018; 85025; 85610; 85670; 85730; 86140; 87040; 87076; 87086; 87186; 93005; 93010; 94760; 96361; 96374; A4217; A9270-GY; C1758; C1769; C2617; J0696; J1170; J1650; J1956; J2405; J2710; J3480; J7030; Q9967

== ENCOUNTER 2017-08-30 21:52 | Emergency (ER) | payer MEDICAID ==
[2017-08-30] MEDS ORDERED: NACL 0.9% 500 ML 500 ML IV ONE (22:24)
[2017-08-30] MEDS ORDERED: ZOFRAN IV ONE (22:24)
[2017-08-30] MEDS ORDERED: DILAUDID IV ONE (22:25)
--- NOTE | 2017-08-30 22:30 | Emergency Department Report ---
ED Abdominal Pain HPI - General Chief Complaint: Abdominal Pain Stated Complaint: L FLANK PAIN Time Seen by Provider: 08/30/17 22:19 Source: patient, family, EMS Mode of arrival: Stretcher Limitations: Other - History of Present Illness Initial Comments: Patient is 62 years old female history of stroke in 2014 was left side paralysis , osteoporosis, left kidney stone with stent placement 2 months ago. Patient presented today with left flank pain started this morning, similar to a previous presentation. Patient denied any fever, nausea, vomiting. No diarrhea. Patient does not have any further complaints. MD Complaint: abdominal pain, flank pain -: This morning Location: L flank Radiation: none Severity scale (0 -10): 7 Quality: stabbing Worsens With: nothing Associated Symptoms: nausea, vomiting - Related Data Home Medications Medication Instructions Recorded Confirmed Last Taken AtorvaSTATin [Lipitor] 80 mg PO QHS 06/10/17 06/10/17 06/10/17 Baclofen 20 mg PO Q8H 06/10/17 06/10/17 06/10/17 Gabapentin [Neurontin] 800 mg PO BID 06/10/17 06/10/17 06/10/17 Pregabalin [Lyrica] 150 mg PO BID 06/10/17 06/10/17 06/10/17 Trazodone HCl [Oleptro ER] 150 mg PO QHS 06/10/17 06/10/17 06/09/17 Previous Rx's Medication Instructions Recorded Last Taken Type Aspirin [Aspirin BABY CHEW TAB] 81 mg PO QDAY #30 tab.chew 06/15/17 Unknown Rx Bisacodyl [Dulcolax suppos] 10 mg [place] QDAY PRN #30 supp.rect 06/15/17 Unknown Rx Carvedilol [Coreg] 3.125 mg PO BID #60 tablet 06/15/17 Unknown Rx Cefuroxime [Ceftin] 500 mg PO Q12H #56 tablet 06/15/17 Unknown Rx Allergies Allergy/AdvReac Type Severity Reaction Status Date / Time ampicillin Allergy Swelling Verified 06/10/17 19:51 levofloxacin [From Levaquin] Allergy Rash Verified 06/13/17 11:43 Penicillins Allergy Swelling Verified 06/10/17 19:51 Sulfa (Sulfonamide Allergy Swelling Verified 06/10/17 19:51 Antibiotics) ED Review of Systems ROS: Stated complaint: L FLANK PAIN Other details as noted in HPI Comment: All other systems reviewed and negative Constitutional: denies: chills, fever Respiratory: denies: cough, shortness of breath, SOB with exertion Cardiovascular: denies: chest pain, palpitations, dyspnea on exertion, orthopnea Gastrointestinal: abdominal pain. denies: nausea, vomiting, diarrhea, constipation, hematemesis, melena, hematochezia Musculoskeletal: denies: back pain ED Past Medical Hx - Past Medical History Previous Medical History?: Yes Hx CVA: Yes (2013 LEFT SIDED PARALYSIS) Hx Kidney Stones: Yes Hx Dementia: Yes (ALZHEIMERS) - Surgical History Past Surgical History?: Yes Additional Surgical History: kidney stent - Social History Smoking Status: Never Smoker Substance Use Type: None - Medications Home Medications: Home Medications Medication Instructions Recorded Confirmed Last Taken Type AtorvaSTATin [Lipitor] 80 mg PO QHS 06/10/17 06/10/17 06/10/17 History Baclofen 20 mg PO Q8H 06/10/17 06/10/17 06/10/17 History Gabapentin [Neurontin] 800 mg PO BID 06/10/17 06/10/17 06/10/17 History Pregabalin [Lyrica] 150 mg PO BID 06/10/17 06/10/17 06/10/17 History Trazodone HCl [Oleptro ER] 150 mg PO QHS 06/10/17 06/10/17 06/09/17 History Aspirin [Aspirin BABY CHEW TAB] 81 mg PO QDAY #30 tab.chew 06/15/17 Unknown Rx Bisacodyl [Dulcolax suppos] 10 mg [place] QDAY PRN #30 supp.rect 06/15/17 Unknown Rx Carvedilol [Coreg] 3.125 mg PO BID #60 tablet 06/15/17 Unknown Rx Cefuroxime [Ceftin] 500 mg PO Q12H #56 tablet 06/15/17 Unknown Rx ED Physical Exam - General Limitations: Other General appearance: alert, in no apparent distress - Head Head exam: Present: atraumatic, normocephalic - Eye Eye exam: Present: normal appearance, PERRL - ENT ENT exam: Present: normal exam, normal orophraynx, mucous membranes moist - Neck Neck exam: Present: normal inspection, full ROM. Absent: tenderness, meningismus, lymphadenopathy, thyromegaly - Respiratory Respiratory exam: Present: normal lung sounds bilaterally. Absent: respiratory distress, wheezes, rales, rhonchi, chest wall tenderness, accessory muscle use, decreased breath sounds, prolonged expiratory - Cardiovascular Cardiovascular Exam: Present: regular rate, normal rhythm, normal heart sounds - GI/Abdominal GI/Abdominal exam: Present: soft, normal bowel sounds. Absent: distended, tenderness, guarding, rebound, rigid, mass, bruit, pulsatile mass, hernia - Extremities Exam Extremities exam: Present: normal inspection, full ROM, normal capillary refill - Back Exam Back exam: Present: CVA tenderness (L). Absent: full ROM, tenderness, CVA tenderness (R) - Neurological Exam Neurological exam: Present: alert, oriented X3 - Skin Skin exam: Present: warm, intact, normal color ED Course Vital Signs 08/30/17 08/30/17 08/30/17 22:08 22:09 23:09 Temperature 97.0 F L Pulse Rate 83 Respiratory 18 Rate Blood Pressure 154/75 Blood Pressure 172/80 [Right] O2 Sat by Pulse 97 97 98 Oximetry 08/30/17 23:16 Temperature Pulse Rate 84 Respiratory 13 Rate Blood Pressure 172/80 Blood Pressure [Right] O2 Sat by Pulse 98 Oximetry - Reevaluation(s) Reevaluation #1: 08/31/17 00:58 patient stated that she feel much better. ED Medical Decision Making - Lab Data Result diagrams: 08/30/17 22:40 08/30/17 22:40 - Radiology Data Radiology results: report reviewed CT abdomen and pelvis showed a 3 mm left kidney stone was no evidence of obstruction, the stent is in position. Critical care attestation.: If time is entered above; I have spent that time in minutes in the direct care of this critically ill patient, excluding procedure time. ED Disposition Clinical Impression: Flank pain, Kidney stone on left side, UTI (urinary tract infection) Disposition: -01 TO HOME OR SELFCARE Is pt being admited?: No Condition: Stable Instructions: Abdominal Pain (ED), Kidney Stones (ED), Urinary Tract Infection in Women (ED)
[2017-08-30 22:59] LABS: Basophils % (Auto) 0.5 % (0.0-1.8); Eosinophils % (Auto) 1.7 % (0.0-4.3); Hematocrit 38.1 % (30.3-42.9); Hemoglobin 12.7 gm/dl (10.1-14.3); Mean Corpuscular HGB Conc 33 % (30-34); Mean Corpuscular Hemoglobin 28 pg (28-32); Mean Corpuscular Volume 85 fl (79-97); Platelet Count 180 K/mm3 (140-440); Red Blood Count 4.48 M/mm3 (3.65-5.03); Red Cell Distribution Width 15.9 % (13.2-15.2); White Blood Count 6.2 K/mm3 (4.5-11.0)
[2017-08-30 23:21] LABS: Alanine Aminotransferase 7 units/L (7-56); Albumin 3.8 g/dL (3.9-5); Albumin/Globulin Ratio 1.3 %; Alkaline Phosphatase 136 units/L (35-129); Anion Gap 18 mmol/L; BUN/Creatinine Ratio 35; Blood Urea Nitrogen 14 mg/dL (7-17); Calcium 8.8 mg/dL (8.4-10.2); Carbon Dioxide 25 mmol/L (22-30); Chloride 99.4 mmol/L (98-107); Glucose 104 mg/dL (65-100); Lipase 58 units/L (13-60); Potassium 3.8 mmol/L (3.6-5.0); Sodium 139 mmol/L (137-145); Total Protein 6.7 g/dL (6.3-8.2)
[2017-08-30 23:23] LABS: Bilirubin,Direct < 0.2 mg/dL (0-0.2); Bilirubin,Indirect 0.1 mg/dL
--- NOTE | 2017-08-30 23:24 | Cat Scan Report ---
FINAL REPORT PROCEDURE: CT ABDOMEN PELVIS WO CON TECHNIQUE: Computerized axial tomography of the abdomen and pelvis was performed without intravenous contrast. This study is performed without intravascular contrast material and its sensitivity for abdominal and pelvic pathology, including neoplasms, inflammation, abscess, free fluid, thrombosis, arterial dissection and infarction, is reduced compared with a contrast enhanced study. HISTORY: left flank pain COMPARISON: 06/10/2017 FINDINGS: Visualized lower thorax: No significant abnormality. Liver: Normal size and attenuation. Spleen: Normal size and attenuation. Gallbladder and biliary system: Normal. Pancreas: Normal. Adrenals: Normal. Kidneys: There is a left ureteral stent which appears to be in proper position. There is mild left hydronephrosis. There is a 3 millimeter stone in the lower pole of the left kidney. The right kidney and ureter are unremarkable.. GI tract: There is no bowel obstruction, colitis or enteritis. The appendix is normal.. Lymph nodes and mesentery: Normal. Vasculature: Normal. Bladder: Normal. Reproductive organs: The uterus is atrophic.. Peritoneum: There is no ascites or free air, abscess or adenopathy.. Musculoskeletal structures: No significant abnormality. Other: None. IMPRESSION: There is a left ureteral stent which appears to be in proper position. There is mild left hydronephrosis. There is a 3 millimeter stone in the lower pole of the left kidney. The right kidney and ureter are unremarkable.. There is no bowel obstruction, colitis or enteritis. The appendix is normal.. The uterus is atrophic.. There is no ascites or free air, abscess or adenopathy.. .
[2017-08-31 00:55] LABS: Bilirubin,Urine NEG (Negative); Blood,Urine LG (Negative); Ketones,Urine NEG (Negative); Leukocyte Esterase,Urine LG (Negative); Nitrite,Urine POS (Negative); Urobilinogen,Urine < 2.0 mg/dL (<2.0)
[2017-08-31 00:56] LABS: WBC,Urine > 182.0 /HPF (0.0-6.0)
[2017-08-31] MEDS ORDERED: CLEOCIN 900 MG/50 mL 900 MG/50 ML BAG IV ONE (01:02)
[2017-08-31 02:43] VITALS: BP 98/48
== END 2017-08-31 04:07 | disposition home or self-care (01) ==
LOC: ED 21:52
DX: N39.0 Urinary tract infection, site not specified (principal); N20.0 Calculus of kidney; G30.9 Alzheimer's disease, unspecified; F02.81 Dementia in other diseases classified elsewhere, unspecified severity, with behavioral disturbance
CPT/HCPCS: 36415; 74176; 80048; 80074; 81001; 83690; 85025; 96365; 96375; 99284; J1170; J2405; J7040

== ENCOUNTER 2017-12-27 12:46 | Emergency (ER) | payer MEDICAID ==
--- NOTE | 2017-12-27 13:30 | Emergency Department Report ---
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 Here awake and alert and oriented to self and place. He was sent by home health nurse for possible low oxygen saturation. Patient states she is always coughing ,she does feed herself but she doesn't get up out of bed. Patient herself is saying that she is having painful urination. They're here for evaluation of possible low oxygen sat ,possible aspiration or cough and dysuria. She is at her baseline mental status. no fever is no stiff neck there is no headache., and sat is normal now -: days(s) Associated Symptoms: malaise, other (no back pain no fever). denies: chest pain , diaphoresis, fever/chills, headaches, loss of appetite, rash, seizure, shortness of breath, syncope, weakness - Related Data Home Medications Medication Instructions Recorded Confirmed Last Taken AtorvaSTATin [Lipitor] 80 mg PO QHS 06/10/17 06/10/17 06/10/17 Baclofen 20 mg PO Q8H 06/10/17 06/10/17 06/10/17 Gabapentin [Neurontin] 800 mg PO BID 06/10/17 06/10/17 06/10/17 Pregabalin [Lyrica] 150 mg PO BID 06/10/17 06/10/17 06/10/17 Trazodone HCl [Oleptro ER] 150 mg PO QHS 06/10/17 06/10/17 06/09/17 Previous Rx's Medication Instructions Recorded Last Taken Type Aspirin [Aspirin BABY CHEW TAB] 81 mg PO QDAY #30 tab.chew 06/15/17 Unknown Rx Bisacodyl [Dulcolax suppos] 10 mg CO QDAY PRN #30 supp.rect 06/15/17 Unknown Rx Carvedilol [Coreg] 3.125 mg PO BID #60 tablet 06/15/17 Unknown Rx Cefuroxime [Ceftin] 500 mg PO Q12H #56 tablet 06/15/17 Unknown Rx AtorvaSTATin [Lipitor] 80 mg PO QHS #30 tab 08/31/17 Unknown Rx Baclofen 20 mg PO TID #60 tablet 08/31/17 Unknown Rx Gabapentin [Neurontin] 400 mg PO Q8HR #30 capsule 08/31/17 Unknown Rx Nitrofurantoin [place]/M-Cryst 100 mg PO Q12HR #14 capsule 08/31/17 Unknown Rx [Macrobid CAP] Ondansetron [Zofran Odt] 4 mg PO Q8HR PRN #14 tab.rapdis 08/31/17 Unknown Rx Pregabalin [Lyrica] 150 mg PO BID #60 capsule 08/31/17 Unknown Rx oxyCODONE /ACETAMINOPHEN [Percocet 1 tab PO Q6HR PRN #14 tablet 08/31/17 Unknown Rx 5/325] traZODone [Desyrel] 100 mg PO QHS #30 tablet 08/31/17 Unknown Rx Nitrofurantoin Monohyd/M-Cryst 100 mg PO BID #20 capsule 12/27/17 Unknown Rx [Macrobid 100 mg Capsule] Allergies Allergy/AdvReac Type Severity Reaction Status Date / Time ampicillin Allergy Swelling Verified 06/10/17 19:51 levofloxacin [From Levaquin] Allergy Rash Verified 06/13/17 11:43 Penicillins Allergy Swelling Verified 06/10/17 19:51 Sulfa (Sulfonamide Allergy Swelling Verified 06/10/17 19:51 Antibiotics) ED Review of Systems ROS: Stated complaint: DIXON Other details as noted in HPI Comment: All other systems reviewed and negative Constitutional: malaise. denies: diaphoresis, fever, weakness Respiratory: denies: orthopnea, shortness of breath, SOB with exertion, SOB at rest, stridor, wheezing Cardiovascular: denies: chest pain, palpitations, dyspnea on exertion, orthopnea , edema, syncope, paroxysmal nocturnal dyspnea Gastrointestinal: denies: diarrhea, constipation, hematemesis, melena, hematochezia Neurological: denies: numbness, paresthesias, confusion, abnormal gait, vertigo ED Past Medical Hx - Past Medical History Previous Medical History?: Yes Hx CVA: Yes (2013 LEFT SIDED PARALYSIS) Hx Kidney Stones: Yes Hx Dementia: Yes (ALZHEIMERS) - Surgical History Past Surgical History?: Yes Additional Surgical History: kidney stent - Social History Smoking Status: Never Smoker Substance Use Type: None - Medications Home Medications: Home Medications Medication Instructions Recorded Confirmed Last Taken Type AtorvaSTATin [Lipitor] 80 mg PO QHS 06/10/17 06/10/17 06/10/17 History Baclofen 20 mg PO Q8H 06/10/17 06/10/17 06/10/17 History Gabapentin [Neurontin] 800 mg PO BID 06/10/17 06/10/17 06/10/17 History Pregabalin [Lyrica] 150 mg PO BID 06/10/17 06/10/17 06/10/17 History Trazodone HCl [Oleptro ER] 150 mg PO QHS 06/10/17 06/10/17 06/09/17 History Aspirin [Aspirin BABY CHEW TAB] 81 mg PO QDAY #30 tab.chew 06/15/17 Unknown Rx Bisacodyl [Dulcolax suppos] 10 mg CO QDAY PRN #30 supp.rect 06/15/17 Unknown Rx Carvedilol [Coreg] 3.125 mg PO BID #60 tablet 06/15/17 Unknown Rx Cefuroxime [Ceftin] 500 mg PO Q12H #56 tablet 06/15/17 Unknown Rx AtorvaSTATin [Lipitor] 80 mg PO QHS #30 tab 08/31/17 Unknown Rx Baclofen 20 mg PO TID #60 tablet 08/31/17 Unknown Rx Gabapentin [Neurontin] 400 mg PO Q8HR #30 capsule 08/31/17 Unknown Rx Nitrofurantoin [place]/M-Cryst 100 mg PO Q12HR #14 capsule 08/31/17 Unknown Rx [Macrobid CAP] Ondansetron [Zofran Odt] 4 mg PO Q8HR PRN #14 tab.rapdis 08/31/17 Unknown Rx Pregabalin [Lyrica] 150 mg PO BID #60 capsule 08/31/17 Unknown Rx oxyCODONE /ACETAMINOPHEN [Percocet 1 tab PO Q6HR PRN #14 tablet 08/31/17 Unknown Rx 5/325] traZODone [Desyrel] 100 mg PO QHS #30 tablet 08/31/17 Unknown Rx Nitrofurantoin Monohyd/M-Cryst 100 mg PO BID #20 capsule 12/27/17 Unknown Rx [Macrobid 100 mg Capsule] ED Physical Exam - General Limitations: No Limitations General appearance: alert, in no apparent distress, anxious - Head Head exam: Present: atraumatic, normocephalic - Eye Eye exam: Present: PERRL, EOMI - Neck Neck exam: Present: normal inspection. Absent: tenderness, meningismus - Respiratory Respiratory exam: Present: normal lung sounds bilaterally. Absent: respiratory distress, wheezes, rales, rhonchi, stridor, chest wall tenderness, accessory muscle use - Cardiovascular Cardiovascular Exam: Present: regular rate, normal heart sounds - GI/Abdominal GI/Abdominal exam: Present: soft. Absent: distended, tenderness, guarding, rebound, rigid, mass, pulsatile mass - Extremities Exam Extremities exam: Present: normal inspection, normal capillary refill. Absent: pedal edema, joint swelling, calf tenderness - Neurological Exam Neurological exam: Present: alert, oriented X3, motor sensory deficit, other ( old CVA no new focal deficit) ED Course Vital Signs 12/27/17 12/27/17 12/27/17 13:01 13:03 15:03 Temperature 98.7 F Pulse Rate 75 68 67 Respiratory 16 16 Rate Blood Pressure 125/68 Blood Pressure 128/59 127/67 [Left] O2 Sat by Pulse 98 Oximetry 12/27/17 16:51 Temperature Pulse Rate 69 Respiratory Rate Blood Pressure Blood Pressure 115/54 [Left] O2 Sat by Pulse Oximetry ED Medical Decision Making - Lab Data Result diagrams: 12/27/17 13:46 12/27/17 13:46 - EKG Data -: EKG Interpreted by Me - EKG Data Interpretation: nonspecific ST-T wave berna - Radiology Data Radiology results: report reviewed - Medical Decision Making Laboratory studies show UTI. Negative troponin normal WBC negative BNP and chest x-ray no acute process per radiologist symptoms are consistent with UTI. She was at no time hypoxic at this facility the home health nurse likely had an aberrant reading on pulse ox on the total was low patient is breathing fine no evidence of other emergent process would require further workup or admission at this time such as ACS or PE DVT is appreciated at this time she is tolerating by mouth still for outpatient follow-up Critical care attestation.: If time is entered above; I have spent that time in minutes in the direct care of this critically ill patient, excluding procedure time. ED Disposition Clinical Impression: UTI (urinary tract infection) Disposition: - TO HOME OR SELFCARE Is pt being admited?: No Condition: Stable Instructions: Urinary Tract Infection in Women (ED) Additional Instructions: See her doctor in 2 days retrun if new or alarming symptoms or call 911 Prescriptions: Nitrofurantoin Monohyd/M-Cryst [Macrobid 100 mg Capsule] 100 mg PO BID #20 capsule Time of Disposition: 17:33
--- NOTE | 2017-12-27 14:02 | XRay Report ---
AP CHEST: HISTORY: Dyspnea AP view of the chest demonstrates a normal mediastinal and cardiac contour with clear lungs and normal bony and soft tissue structures. IMPRESSION: No acute cardiopulmonary process. No significant change since 06/10/17.
[2017-12-27 14:03] LABS: Basophils % (Auto) 0.4 % (0.0-1.8); Eosinophils # (Auto) 0.1 K/mm3 (0.0-0.4); Eosinophils % (Auto) 2.2 % (0.0-4.3); Hematocrit 32.1 % (30.3-42.9); Hemoglobin 10.8 gm/dl (10.1-14.3); Lymphocytes # (Auto) 1.7 K/mm3 (1.2-5.4); Lymphocytes % (Auto) 34.4 % (13.4-35.0); Mean Corpuscular HGB Conc 34 % (30-34); Mean Corpuscular Hemoglobin 28 pg (28-32); Mean Corpuscular Volume 84 fl (79-97); Monocytes # (Auto) 0.5 K/mm3 (0.0-0.8); Monocytes % (Auto) 9.2 % (0.0-7.3); Platelet Count 164 K/mm3 (140-440); Red Blood Count 3.82 M/mm3 (3.65-5.03); Red Cell Distribution Width 15.4 % (13.2-15.2)
[2017-12-27 14:34] LABS: Alanine Aminotransferase 8 units/L (7-56); Albumin 3.2 g/dL (3.9-5); BUN/Creatinine Ratio 32; Blood Urea Nitrogen 16 mg/dL (7-17); Calcium 8.6 mg/dL (8.4-10.2); Hemolysis Index 34
[2017-12-27 15:21] LABS: Bacteria,Urine 3+ /HPF (Negative); Bilirubin,Urine NEG (Negative); Blood,Urine LG (Negative); Color,Urine Yellow (Yellow); Mucus,Urine FEW /HPF
[2017-12-27 15:22] LABS: RBC,Urine > 182.0 /HPF (0.0-6.0)
[2017-12-27 15:23] LABS: WBC,Urine > 182.0 /HPF (0.0-6.0)
[2017-12-27 16:51] VITALS: BP 115/54
== END 2017-12-27 21:12 | disposition home or self-care (01) ==
LOC: ED 12:46
DX: N39.0 Urinary tract infection, site not specified (principal); Z87.440 Personal history of urinary (tract) infections; F03.90 Unspecified dementia, unspecified severity, without behavioral disturbance, psychotic disturbance, mood disturbance, and anxiety
CPT/HCPCS: 36415; 71045; 80053; 81001; 83880; 84484; 85025; 87076; 87086; 87186; 93005; 93010

== ENCOUNTER 2018-02-15 14:59 | Emergency (ER) | payer MEDICAID ==
[2018-02-15] MEDS ORDERED: ULTRAM PO ONE (16:23)
--- NOTE | 2018-02-15 16:25 | Emergency Department Report ---
HPI - General Chief Complaint: Fall Time Seen by Provider: 02/15/18 16:18 - HPI HPI: 62-year-old female presents to the emergency department via EMS from home after she had a fall. The patient's furnace caretaker was trying to help assist getting her in bed using a mechanical lift when she fell from it and fell onto the legs of the brandie lift. She fell and hit her head and the left side of her face and the left side of her body. No loss of consciousness. She has a headache, pain to the left side of the face and pain to the bilateral knees. The patient has left-sided hemiparesis secondary to a previous CVA. She also has Alzheimer's dementia, osteoporosis. She did not take anything for her symptoms prior presentation. Her primary care physician is Dr. Mcdowell. ED Past Medical Hx - Past Medical History Hx CVA: Yes (2013 LEFT SIDED PARALYSIS) Hx Kidney Stones: Yes Hx Dementia: Yes (ALZHEIMERS) - Surgical History Additional Surgical History: kidney stent - Social History Smoking Status: Former Smoker Substance Use Type: None - Medications Home Medications: Home Medications Medication Instructions Recorded Confirmed Last Taken Type AtorvaSTATin [Lipitor] 80 mg PO QHS 06/10/17 06/10/17 06/10/17 History Baclofen 20 mg PO Q8H 06/10/17 06/10/17 06/10/17 History Gabapentin [Neurontin] 800 mg PO BID 06/10/17 06/10/17 06/10/17 History Pregabalin [Lyrica] 150 mg PO BID 06/10/17 06/10/17 06/10/17 History Trazodone HCl [Oleptro ER] 150 mg PO QHS 06/10/17 06/10/17 06/09/17 History Aspirin [Aspirin BABY CHEW TAB] 81 mg PO QDAY #30 tab.chew 06/15/17 Unknown Rx Bisacodyl [Dulcolax suppos] 10 mg GA QDAY PRN #30 supp.rect 06/15/17 Unknown Rx Carvedilol [Coreg] 3.125 mg PO BID #60 tablet 06/15/17 Unknown Rx Cefuroxime [Ceftin] 500 mg PO Q12H #56 tablet 06/15/17 Unknown Rx AtorvaSTATin [Lipitor] 80 mg PO QHS #30 tab 08/31/17 Unknown Rx Baclofen 20 mg PO TID #60 tablet 08/31/17 Unknown Rx Gabapentin [Neurontin] 400 mg PO Q8HR #30 capsule 08/31/17 Unknown Rx Nitrofurantoin [place]/M-Cryst 100 mg PO Q12HR #14 capsule 08/31/17 Unknown Rx [Macrobid CAP] Ondansetron [Zofran Odt] 4 mg PO Q8HR PRN #14 tab.rapdis 08/31/17 Unknown Rx Pregabalin [Lyrica] 150 mg PO BID #60 capsule 08/31/17 Unknown Rx oxyCODONE /ACETAMINOPHEN [Percocet 1 tab PO Q6HR PRN #14 tablet 08/31/17 Unknown Rx 5/325] traZODone [Desyrel] 100 mg PO QHS #30 tablet 08/31/17 Unknown Rx Nitrofurantoin Monohyd/M-Cryst 100 mg PO BID #20 capsule 12/27/17 Unknown Rx [Macrobid 100 mg Capsule] HYDROcodone/APAP 5-325 [[place] 1 each PO Q6HR PRN #14 tablet 02/15/18 Unknown Rx 5/325] ED Review of Systems ROS: Stated complaint: FALL/BODY PAIN Other details as noted in HPI Comment: All other systems reviewed and negative Constitutional: denies: chills, fever Eyes: denies: eye pain, eye discharge, vision change ENT: denies: ear pain, throat pain Respiratory: denies: cough, shortness of breath, wheezing Cardiovascular: denies: chest pain, palpitations Gastrointestinal: denies: abdominal pain, nausea, diarrhea Genitourinary: denies: urgency, dysuria, discharge Musculoskeletal: arthralgia, myalgia. denies: back pain Skin: denies: rash, lesions Neurological: headache. denies: numbness Physical Exam - Physical Exam Vital Signs: Vital Signs 02/15/18 16:14 Temperature 98.3 F Pulse Rate 82 Respiratory 18 Rate Blood Pressure 172/77 O2 Sat by Pulse 96 Oximetry Physical Exam: GENERAL: The patient is well-developed well-nourished. HENT: Normocephalic. Atraumatic. Patient has moist mucous membranes. EYES: Extraocular motions are intact. Pupils equal reactive to light bilaterally. NECK: Supple. There is midline and bilateral paraspinal tenderness to palpation but no step-off or deformity. CHEST/LUNGS: Clear to auscultation. There is no respiratory distress noted. HEART/CARDIOVASCULAR: Regular. There is no tachycardia. There is no murmur. ABDOMEN: Abdomen is soft, nontender. Patient has normal bowel sounds. There is no abdominal distention. SKIN: Skin is warm and dry. NEURO: The patient is awake, alert. The patient is cooperative. The patient has normal speech. MUSCULOSKELETAL: There is no tenderness to palpation to compression of the pelvis. There is pain to palpation of the bilateral knees but no obvious deformity. BACK: No midline thoracic or lumbar tenderness to palpation, step-off or deformity. ED Course Vital Signs 02/15/18 16:14 Temperature 98.3 F Pulse Rate 82 Respiratory 18 Rate Blood Pressure 172/77 O2 Sat by Pulse 96 Oximetry ED Medical Decision Making - Lab Data Result diagrams: 02/15/18 16:39 02/15/18 16:39 - Radiology Data Radiology results: report reviewed, image reviewed interpreted by me: Chest x-ray does not show any acute process. There are no pleural effusions, obvious pneumonia and there is no pneumothorax. X-ray of the pelvis does not show any fracture, dislocation or any acute process. EXAM: CT HEAD/BRAIN WO CON HISTORY: Fall TECHNIQUE: CT examination of the head without IV contrast PRIORS: 06/10/2017 FINDINGS: Stable chronic infarct in the right frontoparietal watershed region with encephalomalacia and volume loss. Stable small chronic lacunar infarct in the anterior limb of the left internal capsule. No acute air-fluid level visualized in the included air-filled sinuses. Bone windows demonstrate no acute fracture. There is ventricular and sulcal prominence compatible with global cerebrocortical atrophy. The brain contains no mass, mass effect, hemorrhage, or acute infarct. There is no extra-axial intracranial bleed, brain bleed, or midline shift. IMPRESSION: No acute CVA, intracranial bleed, or brain mass Stable chronic infarct in left frontoparietal watershed region with encephalomalacia and volume loss Stable small chronic lacunar infarct in the anterior limb of left internal capsule Transcribed By: DEBORA Dictated By: IVAN ROBBINS MD Electronically Authenticated By: IVAN ROBBINS MD Signed Date/Time: 02/15/18 4777 EXAM: CT FACIAL BONES WO CON HISTORY: Fall TECHNIQUE: CT examination of the maxillofacial region without IV contrast PRIORS: Head CT 02/15/[address] 06/10/2017 FINDINGS: Stable chronic infarct with encephalomalacia and volume loss in the right frontoparietal region. The ocular globes are intact as are the retrobulbar soft tissues. The visualized orbit martinez are intact. Bone windows reveal no evidence of acute fracture. The paranasal sinuses are without fluid level to suggest hemorrhage. The included mastoid air cells and middle ear cavities are clear. IMPRESSION: No acute skeletal pathology Transcribed By: DEBORA Dictated By: IVAN ROBBINS MD Electronically Authenticated By: IVAN ROBBINS MD Signed Date/Time: 02/15/18 1846 EXAM: CT CERVICAL SPINE WO CON HISTORY: Fall TECHNIQUE: CT examination of the cervical spine without IV contrast PRIORS: None. FINDINGS: Prevertebral soft tissues are without swelling. No evidence of cervical fracture or vertebral compression. Multilevel degenerative changes are present at the vertebral endplates, facet joints, and uncinate joints. Anterolisthesis: C2-3 trace, C3-4 trace the, C7-T1 slight Retrolisthesis: None. Disc narrowing: C5-6 slight, C6-7 moderate Vertebral endplate, uncinate, and facet degenerative hypertrophic change is associated with bilateral osseous neural foraminal stenosis. Soft tissue windows suggest slight diffuse posterior disc bulge at C3-4 and C4-5 IMPRESSION: No acute skeletal pathology in the cervical spine Multilevel degenerative change, anterolisthesis, and disc narrowing Bilateral neural foraminal stenosis Soft tissue windows suggest multilevel diffuse posterior disc bulge Transcribed By: DEBORA Dictated By: IVAN ROBBINS MD Electronically Authenticated By: IVAN ROBBINS MD Signed Date/Time: 02/15/18 1822 EXAM: XR KNEE BILAT 1-2V HISTORY: Fall knee pain TECHNIQUE: 2 views of the left knee 2 views of the right knee PRIORS: None. FINDINGS: Left knee: Nonspecific subtle transverse linear lucency is noted in the upper portion of the patella of the left knee. Suggestion of small left knee joint effusion. This may be a nondisplaced fracture. Small sessile osteochondroma in proximal medial tibial metaphysis. No dislocation. Right knee: Small osteochondroma proximal medial tibial metaphysis. Subtle depressed appearance of the lateral tibial plateau. Slight linear lucency in the tibial spines. Findings are suspicious for plateau fracture. Suggestion of moderate joint effusion. No dislocation. IMPRESSION: Left knee findings suspicious for upper patella fracture, nondisplaced, with small knee joint effusion Right knee findings suspicious for lateral tibial plateau fracture extending into the tibial spines, with moderate joint effusion Transcribed By: DEBORA Dictated By: IVAN ROBBINS MD Electronically Authenticated By: IVAN ROBBINS MD Signed Date/Time: 02/15/181820 - Medical Decision Making Patient presents after having a fall out of a lift that his use to help her get and out of bed. Patient fell mostly onto her left side but somehow says that her legs got tangled underneath her. CT scan of the head, cervical spine and facial bones did not show any fractures, dislocations, brain bleed or any acute process. X-ray of the chest and pelvis also did not show any acute process. X- ray of the bilateral knees shows a right tibial plateau fracture and a left superior patellar fracture. I spoke with the orthopedist on-call, Dr. Aldana, who feels that the patient is stable for outpatient follow-up with the immobilizers in place since the patient is nonambulatory at baseline. Her labs have been unremarkable. Vital signs stable throughout her ED course. She was given some pain control within the emergency department and had some improvement. She will be discharged home with pain medication and a referral for the orthopedist and instructed to return to the emergency Department with any worsening of her symptoms or any acute distress. - Differential Diagnosis fracture, dislocation, contusion, sprain, strain Critical Care Time: No Critical care attestation.: If time is entered above; I have spent that time in minutes in the direct care of this critically ill patient, excluding procedure time. ED Disposition Clinical Impression: Tibial plateau fracture, right Qualifiers: Encounter type: initial encounter Fracture type: closed Qualified Code(s): S82.141A - Displaced bicondylar fracture of right tibia, initial encounter for closed fracture Left patella fracture Qualifiers: Encounter type: initial encounter Fracture type: closed Fracture morphology: unspecified fracture morphology Fracture alignment: nondisplaced Qualified Code( s): S82.002A - Unspecified fracture of left patella, initial encounter for closed fracture Fall Qualifiers: Encounter type: initial encounter Qualified Code(s): W19.XXXA - Unspecified fall, initial encounter Hypertension Qualifiers: Hypertension type: essential hypertension Qualified Code(s): I10 - Essential ( primary) hypertension Disposition: TO HOME OR SELFCARE Is pt being admited?: No Condition: Stable Instructions: Leg Fracture (ED), Patellar Fracture (ED), Hypertension (ED) Additional Instructions: I have given you a referral for a local orthopedist, Dr. Aldana, to follow up regarding the patella and tibial plateau fractures. I would remain in the knee immobilizers, other than bathing, until follow-up with the orthopedist. Return to the emergency Department with any worsening of your symptoms or any acute distress. You have been prescribed a medication that is sedating and therefore should not be taken prior to driving, working, and responsible for children and in no way should be mixed with alcohol of any quantity. Prescriptions: HYDROcodone/APAP 5-325 [Pettibone 5/325] 1 each PO Q6HR PRN #14 tablet PRN Reason: Pain Referrals: PRIMARY CAREMD [Primary Care Provider] - 3-5 Days SYLWIA ALDANA MD [Staff Physician] - 3-5 Days Time of Disposition: 19:53
[2018-02-15 17:03] LABS: Basophils % (Auto) 0.3 % (0.0-1.8); Eosinophils # (Auto) 0.1 K/mm3 (0.0-0.4); Eosinophils % (Auto) 0.8 % (0.0-4.3); Hematocrit 31.3 % (30.3-42.9); Hemoglobin 10.5 gm/dl (10.1-14.3); Lymphocytes % (Auto) 13.5 % (13.4-35.0); Mean Corpuscular HGB Conc 34 % (30-34); Mean Corpuscular Hemoglobin 27 pg (28-32); Mean Corpuscular Volume 81 fl (79-97); Monocytes # (Auto) 0.3 K/mm3 (0.0-0.8); Monocytes % (Auto) 4.5 % (0.0-7.3); Platelet Count 251 K/mm3 (140-440); Red Blood Count 3.89 M/mm3 (3.65-5.03); Red Cell Distribution Width 16.1 % (13.2-15.2)
[2018-02-15 17:09] LABS: INR 1.14 (0.87-1.13)
[2018-02-15 17:10] LABS: Partial Thromboplastin Time 29.1 Sec. (24.2-36.6)
[2018-02-15 17:16] LABS: BUN/Creatinine Ratio 34; Blood Urea Nitrogen 17 mg/dL (7-17); Calcium 8.8 mg/dL (8.4-10.2); Hemolysis Index 1
--- NOTE | 2018-02-15 17:47 | Cat Scan Report ---
FINAL REPORT EXAM: CT HEAD/BRAIN WO CON HISTORY: Fall TECHNIQUE: CT examination of the head without IV contrast PRIORS: 06/10/2017 FINDINGS: Stable chronic infarct in the right frontoparietal watershed region with encephalomalacia and volume loss. Stable small chronic lacunar infarct in the anterior limb of the left internal capsule. No acute air-fluid level visualized in the included air-filled sinuses. Bone windows demonstrate no acute fracture. There is ventricular and sulcal prominence compatible with global cerebrocortical atrophy. The brain contains no mass, mass effect, hemorrhage, or acute infarct. There is no extra-axial intracranial bleed, brain bleed, or midline shift. IMPRESSION: No acute CVA, intracranial bleed, or brain mass Stable chronic infarct in left frontoparietal watershed region with encephalomalacia and volume loss Stable small chronic lacunar infarct in the anterior limb of left internal capsule
[2018-02-15] MEDS ORDERED: NORCO 5/325 PO ONE (18:16)
--- NOTE | 2018-02-15 18:21 | XRay Report ---
FINAL REPORT EXAM: XR PELVIS 1-2V HISTORY: fall TECHNIQUE: One view of the pelvis PRIORS: AP CT 08/30/2017 FINDINGS: Extensive degenerative change again noted at the SI joints and hip joints. Bilateral hip joint space narrowing, slightly more prominent on the right. Bilateral hip joint marginal osteophytosis. No visible acute fracture or dislocation. Left ureteral stent in place, partly imaged. There is diffuse osseous demineralization which limits the examination. IMPRESSION: No definite radiographic evidence of acute skeletal pathology
--- NOTE | 2018-02-15 18:26 | XRay Report ---
FINAL REPORT EXAM: XR KNEE BILAT 1-2V HISTORY: Fall knee pain TECHNIQUE: 2 views of the left knee 2 views of the right knee PRIORS: None. FINDINGS: Left knee: Nonspecific subtle transverse linear lucency is noted in the upper portion of the patella of the left knee. Suggestion of small left knee joint effusion. This may be a nondisplaced fracture. Small sessile osteochondroma in proximal medial tibial metaphysis. No dislocation. Right knee: Small osteochondroma proximal medial tibial metaphysis. Subtle depressed appearance of the lateral tibial plateau. Slight linear lucency in the tibial spines. Findings are suspicious for plateau fracture. Suggestion of moderate joint effusion. No dislocation. IMPRESSION: Left knee findings suspicious for upper patella fracture, nondisplaced, with small knee joint effusion Right knee findings suspicious for lateral tibial plateau fracture extending into the tibial spines, with moderate joint effusion
--- NOTE | 2018-02-15 18:31 | Cat Scan Report ---
FINAL REPORT EXAM: CT CERVICAL SPINE WO CON HISTORY: Fall TECHNIQUE: CT examination of the cervical spine without IV contrast PRIORS: None. FINDINGS: Prevertebral soft tissues are without swelling. No evidence of cervical fracture or vertebral compression. Multilevel degenerative changes are present at the vertebral endplates, facet joints, and uncinate joints. Anterolisthesis: C2-3 trace, C3-4 trace the, C7-T1 slight Retrolisthesis: None. Disc narrowing: C5-6 slight, C6-7 moderate Vertebral endplate, uncinate, and facet degenerative hypertrophic change is associated with bilateral osseous neural foraminal stenosis. Soft tissue windows suggest slight diffuse posterior disc bulge at C3-4 and C4-5 IMPRESSION: No acute skeletal pathology in the cervical spine Multilevel degenerative change, anterolisthesis, and disc narrowing Bilateral neural foraminal stenosis Soft tissue windows suggest multilevel diffuse posterior disc bulge
--- NOTE | 2018-02-15 18:48 | XRay Report ---
FINAL REPORT EXAM: XR CHEST 1V AP HISTORY: Fall cp TECHNIQUE: Frontal portable examination of the chest PRIORS: None FINDINGS: Oblique patient position limits the examination. Linear scar versus atelectasis left lung base. Healed posterior right rib fracture. Atherosclerotic change in the thoracic aorta. Degenerative change in the thoracic spine. There is no visible pulmonary consolidation, pleural effusion, or pneumothorax. Cardiac silhouette size is normal without vascular congestion. IMPRESSION: Linear scar versus atelectasis left lung base
--- NOTE | 2018-02-15 18:52 | Cat Scan Report ---
FINAL REPORT EXAM: CT FACIAL BONES WO CON HISTORY: Fall TECHNIQUE: CT examination of the maxillofacial region without IV contrast PRIORS: Head CT 02/15/[address] 06/10/2017 FINDINGS: Stable chronic infarct with encephalomalacia and volume loss in the right frontoparietal region. The ocular globes are intact as are the retrobulbar soft tissues. The visualized orbit martinez are intact. Bone windows reveal no evidence of acute fracture. The paranasal sinuses are without fluid level to suggest hemorrhage. The included mastoid air cells and middle ear cavities are clear. IMPRESSION: No acute skeletal pathology
[2018-02-15 20:28] VITALS: BP 171/72
== END 2018-02-16 08:21 | disposition home or self-care (01) ==
LOC: ED 14:59
DX: S82.141A Displaced bicondylar fracture of right tibia, initial encounter for closed fracture (principal); S82.002A Unspecified fracture of left patella, initial encounter for closed fracture; I10 Essential (primary) hypertension; Z86.73 Personal history of transient ischemic attack (TIA), and cerebral infarction without residual deficits; Z87.891 Personal history of nicotine dependence; Z79.82 Long term (current) use of aspirin; W18.30XA Fall on same level, unspecified, initial encounter; Y93.89 Activity, other specified; Y92.89 Other specified places as the place of occurrence of the external cause; Y99.8 Other external cause status
CPT/HCPCS: 36415; 70450; 70486; 71045; 72125; 72170; 80048; 85025; 85610; 85730; 99284

== ENCOUNTER 2018-03-22 11:06 | Day surgery (SDC) | payer MEDICAID ==
[2018-03-22] MEDS ORDERED: FLAGYL 500 MG/100 ML 500 MG/100 ML BAG IV NR (12:41)
[2018-03-22] MEDS ORDERED: NACL 0.9% 1000 ML 1,000 ML IV SCH (12:43)
[2018-03-22] MEDS ORDERED: NEO SYNEPHRINE/NS Syringe(OR USE) IV ONE (13:00)
[2018-03-22] MEDS ORDERED: DIPRIVAN 10 MG/ML IV ONE ×2 (13:16→13:51)
[2018-03-22] MEDS ORDERED: SUBLIMAZE ONE (13:16)
[2018-03-22] MEDS ORDERED: KETALAR ONE (13:22)
[2018-03-22] MEDS ORDERED: XYLOCAINE 2% UROJET ONE (13:32)
[2018-03-22] MEDS ORDERED: XYLOCAINE 2% UROJET UR ONE (13:51)
[2018-03-22] MEDS ORDERED: WATER FOR IRRIG STERILE IR ONE (13:51)
[2018-03-22] MEDS ORDERED: OMNIPAQUE 300 MG/50 ML (CATH LAB) IV ONE (13:56)
--- NOTE | 2018-03-22 14:11 | Short Stay Summary ---
Short Stay Documentation Date of service: 03/22/18 Narrative H&P: 62 yr old female with retained stent dementia - History H&P: obtained from office Past Medical History: COPD, other (dementia) Past Surgical History: Other (cysto, bladder stone removal) - Allergies and Medications Current Medications: Allergies ampicillin Allergy (Verified 06/10/17 19:51) Swelling levofloxacin [From Levaquin] Allergy (Verified 06/13/17 11:43) Rash oxycodone Allergy (Verified 03/20/18 15:50) HALLUCINATIONS,WEAKNESS Penicillins Allergy (Verified 06/10/17 19:51) Swelling Sulfa (Sulfonamide Antibiotics) Allergy (Verified 06/10/17 19:51) Swelling Home Medications Medication Instructions Recorded Confirmed Last Taken Type Atorvastatin Calcium [Lipitor] 80 mg PO DAILY #30 tablet 03/06/18 03/20/1803/21 Rx Baclofen 20 mg PO TID #60 tablet 03/06/18 03/20/18 03/21/18 Rx Gabapentin [Neurontin] 800 mg PO TID #90 tablet 03/06/18 03/20/18 03/21/18 Rx Pregabalin [Lyrica] 150 mg PO DAILY capsule 03/06/18 03/20/18 03/21/18 Rx traMADol [Ultram 50 MG tab] 50 mg PO Q6HR PRN tablet 03/06/18 03/22/18 08:00 Rx traZODone [Desyrel] 150 mg PO QHS tablet 03/06/18 03/20/18 03/21/18 Rx Active Medications Metronidazole (Flagyl 500 Mg/100 Ml) 500 mg in 100 mls @ 200 mls/hr IV PREOP NR Stop: 03/22/18 23:59 Sodium Chloride (Nacl 0.9% 1000 Ml) 1,000 mls @ 42 mls/hr IV DIRECT EMILE Last Admin: 03/22/18 13:05 Dose: 42 mls/hr - Physical exam General appearance: no acute distress, well-nourished HEENT: Atraumatic, PERRLA, EOMI Lungs: Clear to auscultation Heart: Regular rate, Normal S2, No murmurs Gastrointestinal: normal Female Genitourinary: normal Rectal Exam: deferred Extremities: no ischemia, No edema Neurological: Other (weak gait) - Brief post op/procedure progress note Date of procedure: 03/22/18 Pre-op diagnosis: retained bladder stent Post-op diagnosis: same Procedure: cysto, rpg, remove stent Anesthesia: ANJANAA Surgeon: ANTWON MARTIN Condition: stable - Hospital course Hospital course: abx & ultram - Disposition Condition at discharge: Stable Disposition: DC-01 TO HOME OR SELFCARE Short Stay Discharge Plan Follow up with: PRIMARY CARE, [Primary Care Provider] - 7 Days
--- NOTE | 2018-03-22 14:41 | Operative Report ---
PREOPERATIVE DIAGNOSIS: Status post bladder stone removal with retained stent. POSTOPERATIVE DIAGNOSIS: Status post bladder stone removal with retained stent. PROCEDURE: Cystoscopy, removal of left double-J stent, left retrograde pyelogram. SURGEON: Sarthak Lezama M.D. ANESTHESIA: IV sedation and local. ESTIMATED BLOOD LOSS: Minimal. FLUIDS: Crystalloid. COMPLICATIONS: None. INDICATIONS: This 62-year-old female with history of dementia initially was seen in the office for urolithiasis. She had previous bladder stone removal with retained stent. She presents now for a second look revaluation. DESCRIPTION OF PROCEDURE: The patient was taken to the operative suite and placed in a supine position. After adequate IV sedation and local, she was placed in a modified Trendelenburg position due to contractures. 1% lidocaine Urojet was administered via urethra. Cystoscopy was performed using a [place] scope. No bladder tumors. No residual stones. The stent was engaged and removed without difficulty. Left retrograde pyelogram, no residual stones or hydronephrosis. Her bladder was drained. She was taken to the recovery room. She will go home on doxycycline and Ultram. JOB# [id number] [facility]
[2018-03-22 18:17] VITALS: BP 156/77
--- NOTE | 2018-03-24 07:50 | Fluoroscopy Report ---
FLUOROSCOPY RETROGRADE UROGRAPHY: HISTORY: Bladder cancer. FINDINGS: Fluoroscopy was provided by radiology during retrograde urography by the urologist. 7 fluoroscopic images were captured. The images demonstrate removal of a left ureteral stent. Followup left retrograde pyelogram is within normal limits. No images of the right retrograde pyelogram were captured. IMPRESSION: Left ureteral stent removal.
== END 2018-03-22 16:34 | disposition home or self-care (01) ==
LOC: OR 11:06
PROVIDERS: ATTEND Urology
DX: Z46.6 Encounter for fitting and adjustment of urinary device (principal); J44.9 Chronic obstructive pulmonary disease, unspecified; F03.90 Unspecified dementia, unspecified severity, without behavioral disturbance, psychotic disturbance, mood disturbance, and anxiety; Z88.0 Allergy status to penicillin; Z88.2 Allergy status to sulfonamides; Z88.1 Allergy status to other antibiotic agents; Z88.5 Allergy status to narcotic agent; Z79.899 Other long term (current) drug therapy; Z86.73 Personal history of transient ischemic attack (TIA), and cerebral infarction without residual deficits
CPT/HCPCS: 52310; 74420; A4217; C1758; J2370; J2704; J3010; J7030; Q9967

== ENCOUNTER 2018-07-05 16:16 | Emergency (ER) | payer MEDICAID ==
--- NOTE | 2018-07-05 17:36 | Emergency Department Report ---
ED General Adult HPI - General Stated complaint: LEFT TOE PAIN Time Seen by Provider: 07/05/18 17:35 - History of Present Illness Initial comments: 63-year-old female with a history of hypertension presents with the complaint of left toe pain. Patient is not diabetic. Patient's daughter states the patient has a prior history of CVA as well. Daughter states that she has had swelling of the left third toe for 3 days and noticed a discoloration and swelling today and presented to the emergency department. Daughter denies any fever and states that the redness was tracking up her foot and that she presented to the emergency department. patient has had no trauma to the foot. - Related Data Previous Rx's Medication Instructions Recorded Last Taken Type Atorvastatin Calcium [Lipitor] 80 mg PO DAILY #30 tablet 03/06/18 03/21/18 Rx Baclofen 20 mg PO TID #60 tablet 03/06/18 03/21/18 Rx Gabapentin [Neurontin] 800 mg PO TID #90 tablet 03/06/18 03/21/18 Rx Pregabalin [Lyrica] 150 mg PO DAILY capsule 03/06/18 03/21/18 Rx traMADol [Ultram 50 MG tab] 50 mg PO Q6HR PRN tablet 03/06/18 03/22/18 08:00 Rx traZODone [Desyrel] 150 mg PO QHS tablet 03/06/18 03/21/18 Rx Clindamycin [Clindamycin CAP] 300 mg PO Q6H #21 capsule 07/05/18 Unknown Rx traMADol [Ultram] 50 mg PO Q6HR PRN #20 tablet 07/05/18 Unknown Rx Allergies Allergy/AdvReac Type Severity Reaction Status Date / Time ampicillin Allergy Swelling Verified 06/10/17 19:51 levofloxacin [From Levaquin] Allergy Rash Verified 06/13/17 11:43 oxycodone Allergy HALLUCINATI Verified 03/20/18 15:50 ONSWEAKANIA S Penicillins Allergy Swelling Verified 06/10/17 19:51 Sulfa (Sulfonamide Allergy Swelling Verified 06/10/17 19:51 Antibiotics) ED Review of Systems ROS: Stated complaint: LEFT TOE PAIN Other details as noted in HPI Constitutional: denies: chills, fever Eyes: denies: eye pain, eye discharge, vision change ENT: denies: ear pain, throat pain Respiratory: denies: cough, shortness of breath, wheezing Cardiovascular: denies: chest pain, palpitations Endocrine: no symptoms reported Gastrointestinal: denies: abdominal pain, nausea, diarrhea Genitourinary: denies: urgency, dysuria, discharge Musculoskeletal: other (toe pain) Skin: denies: rash, lesions Neurological: denies: headache, weakness, paresthesias Psychiatric: denies: anxiety, depression Hematological/Lymphatic: denies: easy bleeding, easy bruising ED Past Medical Hx - Past Medical History Hx Hypertension: No Hx CVA: Yes (2013 LEFT SIDED PARALYSIS) Hx Congestive Heart Failure: No Hx Diabetes: No Hx Kidney Stones: Yes Hx Asthma: Yes (NO [place]) Hx COPD: Yes (NO [place]) Hx Dementia: Yes (ALZHEIMERS) Hx HIV: No - Surgical History Additional Surgical History: kidney stent - Social History Smoking Status: Former Smoker - Medications Home Medications: Home Medications Medication Instructions Recorded Confirmed Last Taken Type Atorvastatin Calcium [Lipitor] 80 mg PO DAILY #30 tablet 03/06/18 03/20/1803/21 Rx Baclofen 20 mg PO TID #60 tablet 03/06/18 03/20/18 03/21/18 Rx Gabapentin [Neurontin] 800 mg PO TID #90 tablet 03/06/18 03/20/18 03/21/18 Rx Pregabalin [Lyrica] 150 mg PO DAILY capsule 03/06/18 03/20/18 03/21/18 Rx traMADol [Ultram 50 MG tab] 50 mg PO Q6HR PRN tablet 03/06/18 03/22/18 08:00 Rx traZODone [Desyrel] 150 mg PO QHS tablet 03/06/18 03/20/18 03/21/18 Rx Clindamycin [Clindamycin CAP] 300 mg PO Q6H #21 capsule 07/05/18 Unknown Rx traMADol [Ultram] 50 mg PO Q6HR PRN #20 tablet 07/05/18 Unknown Rx ED Physical Exam - General General appearance: alert, in no apparent distress - Head Head exam: Present: atraumatic, normocephalic - Eye Eye exam: Present: normal appearance - ENT ENT exam: Present: mucous membranes moist - Neck Neck exam: Present: normal inspection - Respiratory Respiratory exam: Present: normal lung sounds bilaterally. Absent: respiratory distress - Cardiovascular Cardiovascular Exam: Present: regular rate, normal rhythm, other (2+ dorsalis pedis pulses noted in left foot). Absent: systolic murmur, diastolic murmur, rubs, gallop - GI/Abdominal GI/Abdominal exam: Present: soft, normal bowel sounds - Extremities Exam Extremities exam: Present: normal inspection - Back Exam Back exam: Present: normal inspection - Neurological Exam Neurological exam: Present: alert, oriented X3, other (patient has had decreased movement of left upper and left lower extremity which is baseline; patient has strength of 4/5 in right upper and lower extremity) - Psychiatric Psychiatric exam: Present: normal affect, normal mood - Skin Skin exam: Present: warm, dry, intact, erythema, other (erythema of left third toe with swelling of toe; no evidence of ulcer). Absent: rash ED Course Vital Signs 07/05/18 07/05/18 07/05/18 16:30 16:34 16:46 Temperature 98.7 F Pulse Rate 70 69 Respiratory 14 14 11 L Rate Blood Pressure 129/55 107/48 O2 Sat by Pulse 94 94 Oximetry 07/05/18 07/05/18 07/05/18 17:00 17:15 17:30 Temperature Pulse Rate 68 68 66 Respiratory 11 L 14 12 Rate Blood Pressure 98/57 99/57 119/49 O2 Sat by Pulse 96 94 95 Oximetry 07/05/18 07/05/18 07/05/18 17:45 18:00 18:15 Temperature Pulse Rate 69 61 64 Respiratory 9 L 13 12 Rate Blood Pressure 121/63 131/50 131/57 O2 Sat by Pulse 95 96 95 Oximetry 07/05/18 07/05/18 07/05/18 18:30 18:46 19:00 Temperature Pulse Rate 64 62 61 Respiratory 11 L 9 L 9 L Rate Blood Pressure 127/54 115/54 118/52 O2 Sat by Pulse 92 94 95 Oximetry 07/05/18 07/05/18 19:15 19:30 Temperature Pulse Rate 65 59 L Respiratory 11 L 17 Rate Blood Pressure 113/56 130/51 O2 Sat by Pulse 96 97 Oximetry ED Medical Decision Making - Lab Data Result diagrams: 07/05/18 18:25 07/05/18 18:25 - Medical Decision Making Patient is afebrile. Patient has normal white blood cell count. Patient treated with clindamycin therapy. - Differential Diagnosis Cellulitis; osteomyelitis; anemia; dehdyration Critical care attestation.: If time is entered above; I have spent that time in minutes in the direct care of this critically ill patient, excluding procedure time. ED Disposition Clinical Impression: Cellulitis Disposition: DC- TO HOME OR SELFCARE Is pt being admited?: No Condition: Stable Instructions: Cellulitis (ED) Prescriptions: Clindamycin [Clindamycin CAP] 300 mg PO Q6H #21 capsule traMADol [Ultram] 50 mg PO Q6HR PRN #20 tablet PRN Reason: Pain Referrals: PRIMARY CARE, [Primary Care Provider] - 3-5 Days YSABEL HAWK DPM [Staff Physician] - 3-5 Days Time of Disposition: 21:12 Print Language: CROATIAN
[2018-07-05 18:41] LABS: Basophils % (Auto) 0.6 % (0.0-1.8); Eosinophils # (Auto) 0.1 K/mm3 (0.0-0.4); Hematocrit 33.7 % (30.3-42.9); Hemoglobin 11.6 gm/dl (10.1-14.3); Lymphocytes # (Auto) 1.9 K/mm3 (1.2-5.4); Lymphocytes % (Auto) 40.1 % (13.4-35.0); Mean Corpuscular HGB Conc 34 % (30-34); Mean Corpuscular Hemoglobin 28 pg (28-32); Mean Corpuscular Volume 82 fl (79-97); Monocytes # (Auto) 0.3 K/mm3 (0.0-0.8); Monocytes % (Auto) 6.6 % (0.0-7.3); Platelet Count 139 K/mm3 (140-440); Red Blood Count 4.12 M/mm3 (3.65-5.03); Red Cell Distribution Width 16.8 % (13.2-15.2)
[2018-07-05 19:15] LABS: Alanine Aminotransferase 8 units/L (7-56); Albumin 3.5 g/dL (3.9-5); BUN/Creatinine Ratio 38; Blood Urea Nitrogen 19 mg/dL (7-17); Calcium 8.8 mg/dL (8.4-10.2); Hemolysis Index 4; Lipase 37 units/L (13-60)
[2018-07-05] MEDS ORDERED: CLEOCIN 600 MG/50 mL 600 MG/50 ML BAG IV ONE (20:12)
--- NOTE | 2018-07-05 21:01 | XRay Report ---
FINAL REPORT PROCEDURE: Left foot. TECHNIQUE: Portable AP and lateral views. HISTORY: Foot pain. COMPARISON: No prior studies are available for comparison. FINDINGS: The bones are osteopenic. There are no fractures. The joint spaces appear satisfactory. The soft tissues are unremarkable. IMPRESSION: Osteopenia.
[2018-07-05] MEDS ORDERED: ULTRAM PO ONE (21:08)
[2018-07-05 22:02] VITALS: BP 100/59
== END 2018-07-05 22:02 | disposition home or self-care (01) ==
LOC: ED 16:16
DX: L03.116 Cellulitis of left lower limb (principal); Z86.73 Personal history of transient ischemic attack (TIA), and cerebral infarction without residual deficits; J44.9 Chronic obstructive pulmonary disease, unspecified; G30.8 Other Alzheimer's disease; F02.80 Dementia in other diseases classified elsewhere, unspecified severity, without behavioral disturbance, psychotic disturbance, mood disturbance, and anxiety; Z87.891 Personal history of nicotine dependence; Z88.1 Allergy status to other antibiotic agents; Z88.2 Allergy status to sulfonamides; Z88.4 Allergy status to anesthetic agent; Z88.0 Allergy status to penicillin
CPT/HCPCS: 36415; 80053; 82140; 83690; 85025; 87040

== ENCOUNTER 2018-07-17 09:39 | Emergency (ER) | payer MEDICAID ==
[2018-07-17 09:52] VITALS: BP 123/52
--- NOTE | 2018-07-17 10:06 | Emergency Department Report ---
HPI - General Chief Complaint: Extremity Injury, Lower Time Seen by Provider: 07/17/18 09:55 - HPI HPI: 63-year-old female presents to the emergency department from home with complaint of her legs "turned purple" within 30 minutes of sitting up in a chair. When she lays back down the normal color returns. She does not have significant discomfort when this happens. 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 They spoke with their primary care physician, Dr. Correia, and were supposed to have an appointment today but there was transportation issues. They were told then by the PCP to come into the emergency department for further evaluation. She denies any fever, chest pain, shortness of breath, lower extremity edema. No treatment has been attempted. ED Past Medical Hx - Past Medical History Hx Hypertension: No Hx CVA: Yes (2013 LEFT SIDED PARALYSIS) Hx Congestive Heart Failure: No Hx Diabetes: No Hx Kidney Stones: Yes Hx Asthma: Yes (NO [place]) Hx COPD: Yes (NO [place]) Hx Dementia: Yes (ALZHEIMERS) Hx HIV: No - Surgical History Additional Surgical History: kidney stent - Social History Smoking Status: Never Smoker Substance Use Type: None - Medications Home Medications: Home Medications Medication Instructions Recorded Confirmed Last Taken Type Atorvastatin Calcium [Lipitor] 80 mg PO DAILY #30 tablet 03/06/18 03/20/1803/21 Rx Baclofen 20 mg PO TID #60 tablet 03/06/18 03/20/18 03/21/18 Rx Gabapentin [Neurontin] 800 mg PO TID #90 tablet 03/06/18 03/20/18 03/21/18 Rx Pregabalin [Lyrica] 150 mg PO DAILY capsule 03/06/18 03/20/18 03/21/18 Rx traMADol [Ultram 50 MG tab] 50 mg PO Q6HR PRN tablet 03/06/18 03/22/18 08:00 Rx traZODone [Desyrel] 150 mg PO QHS tablet 03/06/18 03/20/18 03/21/18 Rx Clindamycin [Clindamycin CAP] 300 mg PO Q6H #21 capsule 07/05/18 Unknown Rx traMADol [Ultram] 50 mg PO Q6HR PRN #20 tablet 07/05/18 Unknown Rx ED Review of Systems ROS: Stated complaint: PURPLE FEET Other details as noted in HPI Comment: All other systems reviewed and negative Constitutional: denies: chills, fever Eyes: denies: eye pain, eye discharge, vision change ENT: denies: ear pain, throat pain Respiratory: denies: cough, shortness of breath, wheezing Gastrointestinal: denies: abdominal pain, nausea, diarrhea Genitourinary: denies: urgency, dysuria, discharge Musculoskeletal: denies: back pain, joint swelling Skin: change in color (after 30 mins of sitting in a chair) Neurological: denies: headache, weakness, paresthesias Physical Exam - Physical Exam Vital Signs: Vital Signs 07/17/18 09:51 Temperature 89.4 F L Pulse Rate 80 Respiratory 18 Rate Blood Pressure 123/52 [Left] O2 Sat by Pulse 95 Oximetry Physical Exam: GENERAL: The patient is well-developed well-nourished. HENT: Normocephalic. Atraumatic. Patient has moist mucous membranes. EYES: Extraocular motions are intact. Pupils equal reactive to light bilaterally. NECK: Supple. Trachea is midline. CHEST/LUNGS: Clear to auscultation. There is no respiratory distress noted. HEART/CARDIOVASCULAR: Regular. There is no tachycardia. There is no murmur. ABDOMEN: Abdomen is soft, nontender. Patient has normal bowel sounds. There is no abdominal distention. SKIN: There is no rash. There is no edema. There is no diaphoresis. NEURO: The patient is awake, alert and cooperative. Normal speech. MUSCULOSKELETAL: There is no tenderness or deformity. There is no evidence of acute injury. Capillary refill less than 3 seconds to the bilateral lower extremities. Palpable dorsalis pedis pulses. ED Course Vital Signs 07/17/18 09:51 Temperature 89.4 F L Pulse Rate 80 Respiratory 18 Rate Blood Pressure 123/52 [Left] O2 Sat by Pulse 95 Oximetry - Reevaluation(s) Reevaluation #1: 07/17/18 11:43 Thus far, the patient's workup has been benign. Labs are unremarkable. She has had a negative venous and arterial Doppler without any signs of DVT or arterial occlusions. The patient's daughter still concerned as these symptoms only occur when the patient gets into her wheelchair, which she does just to give her a break from consistently laying in the bed. We will place the patient in a wheelchair in her room and reassessed about 30 minutes afterwards to see if there are any skin color changes or complications. - Consultations Consultation #1: 07/17/18 13:24 I spoke with the vascular surgeon receptionist secretary, Dr. Santiago, who listened to the patient' s case presentation and history and agrees that there are no further emergent testing necessary within the ED and he is happy to see the patient as an outpatient referral. I also spoke with the patient's primary care physician, Dr. Correia, who listened to the case presentation and recommends outpatient follow-up with him this week. ED Medical Decision Making - Lab Data Result diagrams: 07/17/18 10:11 07/17/18 10:11 - Radiology Data Radiology results: report reviewed Venous Doppler ultrasound to the bilateral lower extremities does not show any signs of any DVT Arterial Doppler to the bilateral lower extremities shows a little bit of plaque but otherwise no signs of any occlusions or arterial insufficiency. - Medical Decision Making The patient presents with a two-week history of her legs turning color and only occurs when the patient is sitting up in her wheelchair for about 30 minutes. She is in the wheelchair to give her a break from being in the bed as she is mostly bedbound. Once she is laid back down in the bed, the skin color returns to normal. She has no issues while laying flat. We were going to attempt to have the patient sit in a wheelchair to evaluate for color change but the patient is only able to sit up in a specially designed wheelchair or seat in which her upper body can be strapped in, otherwise she falls. On examination the patient has good skin color and appears to be palpable pedal pulses. She has capillary refill to the toes less than 3 seconds. The patient had a venous Doppler ultrasound that did not show any signs of any DVT. She had arterial ultrasound that did not show any signs of arterial insufficiency or occlusion. Vital signs stable throughout her ED course. The labs have been unremarkable as a source of any of her symptoms. I spoke with both vascular surgery and the patient's primary care physician and they are in agreement for discharge and outpatient follow-up. - Differential Diagnosis arterial insufficiency, cerulea dolens, venous stasis, DVT Critical Care Time: No Critical care attestation.: If time is entered above; I have spent that time in minutes in the direct care of this critically ill patient, excluding procedure time. ED Disposition Clinical Impression: Discoloration of skin, History of CVA (cerebrovascular accident) Disposition: - TO HOME OR SELFCARE Is pt being admited?: No Condition: Stable Additional Instructions: Please follow up with your primary care physician in the next few days. I have given you a referral to the vascular physician, Dr. Santiago, regarding further evaluation of the intermittent leg color changes. Return to the emergency Department with any worsening of your symptoms or any acute distress. Referrals: GLORIA CORREIA MD [Staff Physician] - 3-5 Days DAY,OSWALDO Hill MD [Staff Physician] - 3-5 Days Time of Disposition: 12:51
[2018-07-17 10:23] LABS: Basophils % (Auto) 0.6 % (0.0-1.8); Eosinophils # (Auto) 0.1 K/mm3 (0.0-0.4); Eosinophils % (Auto) 2.1 % (0.0-4.3); Hematocrit 36.1 % (30.3-42.9); Hemoglobin 12.2 gm/dl (10.1-14.3); Lymphocytes # (Auto) 1.7 K/mm3 (1.2-5.4); Lymphocytes % (Auto) 31.7 % (13.4-35.0); Mean Corpuscular HGB Conc 34 % (30-34); Mean Corpuscular Hemoglobin 28 pg (28-32); Mean Corpuscular Volume 83 fl (79-97); Monocytes # (Auto) 0.5 K/mm3 (0.0-0.8); Monocytes % (Auto) 8.5 % (0.0-7.3); Platelet Count 133 K/mm3 (140-440); Red Blood Count 4.34 M/mm3 (3.65-5.03); Red Cell Distribution Width 16.8 % (13.2-15.2)
[2018-07-17 10:45] LABS: Alanine Aminotransferase 8 units/L (7-56); Albumin 3.3 g/dL (3.9-5); BUN/Creatinine Ratio 36; Blood Urea Nitrogen 18 mg/dL (7-17); Calcium 8.9 mg/dL (8.4-10.2); Hemolysis Index 3
--- NOTE | 2018-07-19 14:13 | Vascular Lab Report ---
LOWER EXTREMITY ARTERIAL DUPLEX: REASON FOR EXAM: Peripheral arterial disease. COMMENTS ON THE RIGHT: Monophasic waveforms are seen proximally. Monophasic waveforms are seen distally. Findings are consistent with aortoiliac inflow disease. Scattered plaque is seen throughout. Findings are consistent with abnormal perfusion. Findings are not consistent with the ability to heal distal wounds. COMMENTS ON THE LEFT: Monophasic waveforms are seen proximally. Monophasic waveforms are seen distally. Evidence of aortoiliac inflow disease is identified. Scattered plaque is seen throughout. Findings are consistent with abnormal perfusion. Findings are not consistent with the ability to heal distal wounds. IMPRESSION: RIGHT: Significant arterial inflow disease. Recommend further evaluation. LEFT:Significant arterial inflow disease as on the right. Recommend further evaluation.
== END 2018-07-17 14:25 | disposition home or self-care (01) ==
LOC: ED 09:39
DX: L81.9 Disorder of pigmentation, unspecified (principal); J44.9 Chronic obstructive pulmonary disease, unspecified; Z86.73 Personal history of transient ischemic attack (TIA), and cerebral infarction without residual deficits
CPT/HCPCS: 36415; 80053; 85025; 93925; 93970; 99284

== ENCOUNTER 2018-08-07 09:34 | Outpatient (CLI) | payer MEDICAID ==
--- NOTE | 2018-08-07 14:46 | Cat Scan Report ---
FINAL REPORT EXAM: CT ANGIO ABD/FEMORAL ABD AORTA HISTORY: I70.213 TECHNIQUE: CT angiography of the abdomen and CT runoff of the lower extremities performed. IV contrast was administered. Axial images and coronal and sagittal reformatted images were obtained. PRIORS: CT abdomen pelvis from 08/30/2017 FINDINGS: There is some atelectasis at the lung bases. There are aortoiliac atherosclerotic calcifications. The celiac trunk/axis, SMA, MICHAEL and renal arteries are patent. I cannot confirm significant stenosis. There is no abdominal aortic aneurysm seen. There is mild aortic stenosis at aortic bifurcation, more notable involving the origin of right iliac artery.. There is some focal stenosis of left external iliac artery. There are atherosclerotic calcifications involving femoral arteries. There is diminished flow throughout lower extremity arteries bilaterally. There is, however, patency of vessels from groin to foot. There is some stenosis involving the mid aspect of right superficial femoral artery. There is mild left hydronephrosis and proximal hydroureter. This is of unknown etiology. No obstructing stones seen. There is no evidence of intestinal obstruction. The appendix is normal. There are no abnormal fluid collections seen. There is no free intraperitoneal air. There is prominent stool. Stool distends the rectum. Correlate for constipation. The bladder is unremarkable. IMPRESSION: Atherosclerotic change involving aortoiliac vessels and femoral arteries. There is moderate aortoiliac disease with mild stenosis at aortic bifurcation and some focal moderate stenosis involving left external iliac artery. Overall lower extremity flow is attenuated bilaterally. There is focal stenosis in the mid right femoral artery. Although diminished, flow is maintained to ankle and foot bilaterally. Mild left hydronephrosis and proximal hydroureter. No obstructing stone identified.
== END 2018-08-07 09:35 | disposition home or self-care (01) ==
LOC: CT 09:34
PROVIDERS: ATTEND Surgery Vascular Surgery
DX: N13.30 Unspecified hydronephrosis (principal); N13.4 Hydroureter; I70.0 Atherosclerosis of aorta; I77.1 Stricture of artery; E78.00 Pure hypercholesterolemia, unspecified; J44.9 Chronic obstructive pulmonary disease, unspecified; Z87.891 Personal history of nicotine dependence
CPT/HCPCS: 75635; Q9967